=== PATIENT | female | born 1940 | race Caucasian/White ===

== ENCOUNTER 2017-02-04 07:00 | Day surgery (SDC) | payer MEDICARE, OTHER ==
[~2017-02-04 07:00] MED LIST: Lactated Ringers 1,000 ML IV SCH
[2017-02-04] MEDS ORDERED: Propofol 200 MG/20 ML SDV ONE (07:42)
[2017-02-04] MEDS ORDERED: fentaNYL 100 MCG/2 ML SDV ONE (07:42)
[2017-02-04] MEDS ORDERED: Dexamethasone 10 MG/ML SDV ONE (07:59)
[2017-02-04] MEDS ORDERED: Ondansetron 4 MG/2 ML SDV ONE ×2 (07:59→09:15)
[2017-02-04 10:09] VITALS: BP 136/69
--- NOTE | 2017-02-04 11:32 | OR ---
PREOPERATIVE DIAGNOSIS: Dysphagia. POSTOPERATIVE DIAGNOSES: 1. Esophageal stenosis. 2. Hemorrhagic gastritis. PROCEDURE PROPOSED: Upper gastrointestinal panendoscopy. PROCEDURE DONE: 1. Upper gastrointestinal panendoscopy with biopsies. 2. Endoscopic balloon esophageal dilatation. INDICATION: This is a 76-year-old female bothered with dysphagia and what appears to be some esophageal stenosis type problems with some intermittent regurgitation of food. She does take 1 Zantac each evening, and her last gastroscopy was about 3 years ago. She comes in now for repeat exam. TECHNIQUE: The patient was brought to the endoscopy suite, placed in left lateral decubitus position. She was sedated with propofol per RECREATION ESTABLISHMENT MANAGER. The flexible video gastroscope was then passed transorally after placing an intraoral kathleen. The scope was then passed through the esophagus, all the way down into the second and third portion of the duodenum. The duodenum appeared unremarkable. The antrum revealed significant hemorrhagic gastritis with multiple petechial hemorrhage areas. Several biopsies were taken from the antrum to rule out H. pylori. The remainder of the body of the stomach looked quite healthy. The GE junction revealed a small hiatal hernia of about 2 to 3 cm in size, and she did have some stenosis that I felt would benefit with dilatation. Endoscopic balloon dilatation was then performed by bringing in a balloon dilator, 15 to 18 mm in size, and I dilated the esophagus through the stages of 15 mm, 16.5 mm, and 18 mm with some fracturing of the stenosis with some slight bleeding. She seemed to tolerate the procedure well. The balloon and scope were then removed. IMPRESSION: 1. Hemorrhagic gastritis. 2. Esophageal stenosis dilated to 18 mm. PLAN: I will also add Protonix 40 mg q.a.m. to her regimen. She does take Zantac each evening, which I would like her to continue. She should avoid caffeine, alcohol, ibuprofen, and follow up with her PCP, and she was told that she potentially may need future dilatations based on her symptoms. SCM: 02/04/2017 09:43:06 MODL: 02/04/2017 11:24:42 /[id number]
--- NOTE | 2017-02-14 13:17 | LETTER ---
02/11/2017 RE: WERNER GOMEZ : 1940 Dear Werner: The biopsies taken from your stomach did reveal some chronic gastritis, but you did not have the bacteria known as Helicobacter pylori in your stomach. I am hoping that your swallowing has improved with dilatation. If you have any further questions, feel free to call. Respectfully,
== END 2017-02-04 10:40 | disposition home or self-care (01) ==
LOC: VM.SDS 07:00
PROVIDERS: ATTEND Surgery
DX: K29.71 Gastritis, unspecified, with bleeding (principal); K22.2 Esophageal obstruction
CPT/HCPCS: 43239; 43249; J1100; J2405; J2704; J7120; 00810; 88305; C1726; J3010

== ENCOUNTER 2018-12-04 06:28 | Day surgery (SDC) | payer MEDICARE, OTHER ==
[2018-12-04] MEDS ORDERED: Lactated Ringers 1,000 ML IV SCH (07:00)
[2018-12-04] MEDS ORDERED: Sodium Chloride 0.9% 10 ML Syringe FLUSH PRN (07:00)
[2018-12-04] MEDS ORDERED: fentaNYL 100 MCG/2 ML SDV ONE (07:52)
[2018-12-04] MEDS ORDERED: Ondansetron 4 MG/2 ML SDV ONE (07:52)
[2018-12-04] MEDS ORDERED: Propofol 200 MG/20 ML SDV ONE (07:52)
[2018-12-04] MEDS ORDERED: Dexamethasone 10 MG/ML SDV ONE (07:53)
[2018-12-04 09:08] VITALS: BP 124/66
--- NOTE | 2018-12-04 15:33 | OR ---
PREOPERATIVE DIAGNOSES: Family history of colon cancer, change in bowel pattern. POSTOPERATIVE DIAGNOSES: Extensive sigmoid diverticulosis, colonic polyps x4. PROCEDURE PROPOSED: Total flexible colonoscopy. PROCEDURE DONE: Total flexible colonoscopy with polypectomy x4. INDICATION: This is a 78-year-old female who has a family history of a sister with colon cancer and her last examination was 5 years ago. She also has had a change in her bowel pattern recently with increasing constipation and decreased number of stools with some bloating symptoms. TECHNIQUE: The patient was brought to the endoscopy suite, placed in left lateral decubitus position. She was sedated per ART EDUCATOR with propofol. The flexible video colonoscope was then passed transanally and under visualization advanced to the cecum. She was found to have a cecal polyp removed with a couple of bites of the cold biopsy forceps. The remainder of the transverse colon was unremarkable. The descending colon and sigmoid colon revealed rather extensive diverticulosis, particularly in the sigmoid region, and she had several polyps in the low rectosigmoid, 1 at 5 cm, 1 at 10 cm, 1 at 15 cm, again all removed with cold biopsy forceps technique and retrieved with the biopsy forceps and submitted for pathologic examination. She tolerated the procedure well. She had a good bowel preparation and a thorough examination was obtained. She tolerated procedure well. FINAL IMPRESSION: 1. Extensive sigmoid and left colon diverticulosis. 2. Colonic polyps x4. PLAN: The patient will be sent a letter with pathology report. I felt at her age that she probably likely does not need any future examinations, could not detect any reason in her colon for the change in bowel pattern, and should continue to follow up with her PCP for further management of her constipation problem. SCM: 12/04/2018 08:21:45 MODL: 12/04/2018 13:35:24 /[id number]
== END 2018-12-04 10:07 | disposition home or self-care (01) ==
LOC: VM.SDS 06:28
PROVIDERS: ATTEND Surgery
DX: K59.00 Constipation, unspecified (principal); D12.0 Benign neoplasm of cecum; K63.5 Polyp of colon; K57.30 Diverticulosis of large intestine without perforation or abscess without bleeding; I12.9 Hypertensive chronic kidney disease with stage 1 through stage 4 chronic kidney disease, or unspecified chronic kidney disease; N18.3 Chronic kidney disease, stage 3 (moderate); F17.210 Nicotine dependence, cigarettes, uncomplicated; E78.5 Hyperlipidemia, unspecified; K21.9 Gastro-esophageal reflux disease without esophagitis; C82.10 Follicular lymphoma grade II, unspecified site; Z79.82 Long term (current) use of aspirin; Z79.899 Other long term (current) drug therapy; Z80.0 Family history of malignant neoplasm of digestive organs
CPT/HCPCS: 00811; 45380; J1100; J2405; J2704; J3010; J7120

== ENCOUNTER 2018-12-08 06:53 | Day surgery (SDC) | payer MEDICARE, OTHER ==
[2018-12-08] MEDS ORDERED: Propofol 200 MG/20 ML SDV ONE (07:53)
[2018-12-08] MEDS ORDERED: Ondansetron 4 MG/2 ML SDV ONE (08:59)
[2018-12-08 10:34] VITALS: BP 159/66
--- NOTE | 2018-12-08 13:45 | OR ---
PREOPERATIVE DIAGNOSIS: Esophageal stenosis with active gastroesophageal reflux disease. POSTOPERATIVE DIAGNOSIS: Esophageal stenosis with active gastroesophageal reflux disease. PROCEDURE PROPOSED: Endoscopic balloon esophageal dilatation. PROCEDURE DONE: Endoscopic balloon esophageal dilatation. TECHNIQUE: The patient was already sedated. The gastroscope was in the esophagus. I then passed an 18-20 mm dilating balloon and this was placed across the GE junction, approximately 5 cm on each side. The GE junction appeared to be at 37 cm. The balloon was then inflated to 18 mm followed by 19 and ending up at 20 mm. There was some definite fracturing of the stenosis with some minor bleeding. This was irrigated and inspected and appeared to be without significant injury. The balloon and scope were then removed. She tolerated the procedure well. FINAL IMPRESSION: Esophageal stenosis dilated to 20 mm. PLAN: Ashlynlosec as previously described and she potentially may need future dilations based on symptomatology. SCM: 12/08/2018 09:20:12 MODL: 12/08/2018 11:32:33 /[id number]
--- NOTE | 2018-12-08 13:48 | OR ---
PREOPERATIVE DIAGNOSIS: Dysphagia. POSTOPERATIVE DIAGNOSES: Significant antritis with petechial hemorrhage, mild esophageal stenosis with mild gastroesophageal reflux disease. PROCEDURE PROPOSED: Upper gastrointestinal panendoscopy with antral biopsies. PROCEDURE DONE: Upper gastrointestinal panendoscopy with antral biopsies. INDICATION: This is a 78-year-old female with a history of dysphagia. She has previously had her esophagus dilated and comes in now for further examination based on her symptoms. TECHNIQUE: The patient brought to the endoscopy suite, placed in left lateral decubitus position. She was sedated per LANDSCAPE PHOTOGRAPHER with propofol. The flexible video gastroscope was then passed transorally and under visualization advanced well into the duodenum. The duodenum, duodenal bulb were unremarkable. The antrum revealed significant antritis with petechial hemorrhage and a couple of biopsies were taken from the antrum. The body of the stomach otherwise looked quite normal and healthy. The GE junction did reveal a rather very small hiatal hernia that appeared to be insignificant, but she did have some mild GERD and mild esophageal stenosis that I felt would benefit with dilation and the remainder of the esophagus appeared normal. FINAL IMPRESSION: 1. Mild gastroesophageal reflux disease with esophageal stenosis. 2. Significant antritis with petechial hemorrhage. PLAN: The patient will be treated with Prilosec 20 mg daily. She needs to avoid caffeine, alcohol, ibuprofen, and she will also have her esophagus dilated. SCM: 12/08/2018 09:20:12 MODL: 12/08/2018 11:31:22 /[id number]
== END 2018-12-08 10:30 | disposition home or self-care (01) ==
LOC: VM.SDS 06:53
PROVIDERS: ATTEND Surgery
DX: K22.2 Esophageal obstruction (principal); K29.61 Other gastritis with bleeding; K21.9 Gastro-esophageal reflux disease without esophagitis; I12.9 Hypertensive chronic kidney disease with stage 1 through stage 4 chronic kidney disease, or unspecified chronic kidney disease; N18.3 Chronic kidney disease, stage 3 (moderate); J43.9 Emphysema, unspecified; C82.10 Follicular lymphoma grade II, unspecified site; E78.5 Hyperlipidemia, unspecified; F17.210 Nicotine dependence, cigarettes, uncomplicated; Z79.82 Long term (current) use of aspirin; Z79.899 Other long term (current) drug therapy; Z90.13 Acquired absence of bilateral breasts and nipples
CPT/HCPCS: 00731; C1726; J2405; J2704; J7120

== ENCOUNTER 2019-07-21 08:33 | Emergency (ER) | payer MEDICARE, OTHER ==
[2019-07-21 08:48] VITALS: BP 158/86; PULSE 103
--- NOTE | 2019-07-21 09:17 | EDM.PDOC ---
ED HPI GENERAL MEDICAL PROBLEM - General Chief Complaint: Respiratory Problem Stated Complaint: cough Time Seen by Provider: 07/21/19 08:57 Source of Information: Reports: Patient - History of Present Illness INITIAL COMMENTS - FREE TEXT/NARRATIVE: patient comes into the emergency department with complaint of progressive cough. Patient was in the clinic approximately 2 days ago and was prescribed azithromycin and prednisone for bronchial cough. Patient states that she has a gun to feel better however she has a severe cough especially when she tries to lay down. She has not slept more than 1-2 hours each night due the severe cough. She is coming to the emergency department today with request for medication to help with the severe cough patient denies any fever, shortness of breath, chest pain, dizziness, nausea or vomiting. She states that during the day since starting the medication she has not noticed her cough is significant. However at nighttime it is still progressive and is keeping her up. Patient denies any other concerns or complaints she feels overall she is getting better however dribbling with the severe cough at night and her inability to sleep Onset: Gradual Location: Reports: Other Quality: Reports: Other Severity: Severe Improves with: Reports: Other Worsens with: Reports: Movement Context: Reports: Other Associated Symptoms: Reports: No Other Symptoms - Related Data Allergies Allergy/AdvReac Type Severity Reaction Status Date / Time CONTRAST DYE AdvReac Mild Nausea and Uncoded 07/21/19 08:41 Vomiting Home Meds: Home Meds Acetaminophen [Tylenol Extra Strength] 1 tab PO Q4H PRN 06/12/14 [History] Aspirin [Halfprin] 1 tab PO DAILY 06/12/14 [History] Loratadine [Claritin] 10 mg PO DAILY PRN 06/12/14 [History] Potassium Chloride [Klor-Con M20] 1 tab PO DAILY 06/12/14 [History] Cholecalciferol (Vitamin D3) [Vitamin D3] 1,000 units PO DAILY 01/27/17 [History ] Hydrochlorothiazide 12.5 mg PO DAILY 01/27/17 [History] Albuterol Sulfate [Proair Hfa] 2 puff INH Q4H PRN 12/05/18 [History] Magnesium Oxide 250 mg PO DAILY 12/05/18 [History] Omeprazole Magnesium [Prilosec Otc] 20 mg PO DAILY 07/21/19 [History] Past Medical History HEENT History: Reports: Cataract Other HEENT History: DYSPHAGIA Cardiovascular History: Reports: High Cholesterol, Hypertension Respiratory History: Reports: COPD, Other (See Below) Other Respiratory History: EMPHYSEMA Gastrointestinal History: Reports: Diverticulosis, GERD Other Gastrointestinal History: Hiatal hernia 20 years ago Genitourinary History: Reports: Renal Disease Other Genitourinary History: Creatinine was going up and treated for renal disease Neurological History: Reports: None Other Psychiatric History: TOBACCO USE DISORDER Endocrine/Metabolic History: Reports: None Other Hematologic History: HYPOGAMMAGLOBULINEMIA Other Immunologic History: HX of cancer Oncologic (Cancer) History: Reports: Breast, Lymphoma Other Dermatologic History: NIGHT SWEATS - Past Surgical History Head Surgeries/Procedures: Reports: None HEENT Surgical History: Reports: Cataract Surgery, Other (See Below) Other HEENT Surgeries/Procedures: Cataract surgery early Cardiovascular Surgical History: Reports: None Respiratory Surgical History: Reports: None GI Surgical History: Reports: Cholecystectomy, Colonoscopy, EGD Female Surgical History: Reports: Mastectomy, Tubal Ligation Endocrine Surgical History: Reports: None Neurological Surgical History: Reports: None Musculoskeletal Surgical History: Reports: Carpal Tunnel, Shoulder Surgery Other Musculoskeletal Surgeries/Procedures:: EXCISION OF CYST GANGLION. hand sx x8. blocked ulna nerve repair Oncologic Surgical History: Reports: Mastectomy, Other (See Below) Other Oncologic Surgeries/Procedures: Double mastectomy Social & Family History - Tobacco Use Smoking Status *Q: Current Every Day Smoker Years of Tobacco use: 58 Packs/Tins Daily: 1 - Recreational Drug Use Recreational Drug Use: No ED ROS GENERAL - Review of Systems Review Of Systems: ROS reveals no pertinent complaints other than HPI. Constitutional: Denies: Fever, Chills, Malaise, Weakness, Fatigue, Decreased Appetite HEENT: Reports: No Symptoms Respiratory: Reports: Wheezing, Cough Cardiovascular: Reports: No Symptoms Endocrine: Reports: No Symptoms GI/Abdominal: Reports: No Symptoms : Reports: No Symptoms Musculoskeletal: Reports: No Symptoms Skin: Reports: No Symptoms Neurological: Reports: No Symptoms Psychiatric: Reports: No Symptoms Hematologic/Lymphatic: Reports: No Symptoms ED EXAM, GENERAL - Physical Exam Exam: See Below Exam Limited By: No Limitations General Appearance: Alert, WD/WN, No Apparent Distress Throat/Mouth: Normal Inspection, Normal Lips, No Airway Compromise Head: Normocephalic Respiratory/Chest: No Respiratory Distress, No Accessory Muscle Use, Chest Non- Tender, Wheezing Cardiovascular: Normal Peripheral Pulses, Regular Rate, Rhythm Back Exam: Normal Inspection, Full Range of Motion Extremities: Normal Inspection, Normal Range of Motion, Non-Tender Neurological: Alert, Oriented, Normal Gait Psychiatric: Normal Affect, Normal Mood Skin Exam: Warm, Dry, Intact, Normal Color Course - Vital Signs Last Recorded V/S: Last Vital Signs Temp 36.5 C 07/21/19 08:44 Pulse 103 H 07/21/19 08:44 Resp 20 07/21/19 08:44 BP 158/86 H 07/21/19 08:44 Pulse Ox 93 L 07/21/19 08:44 Departure - Departure Time of Disposition: 09:07 Disposition: Home, Self-Care 01 Condition: Good Clinical Impression: Bronchitis - Discharge Information *PRESCRIPTION DRUG MONITORING PROGRAM REVIEWED*: Not Applicable *COPY OF PRESCRIPTION DRUG MONITORING REPORT IN PATIENT RACHAEL: Not Applicable Instructions: Upper Respiratory Infection, Adult, [id number] Additional Instructions: 1. rest 2. take your antibiotics as prescribed 3. Use the Promethazine/codeine sparingly for it can cause Lucid muscle ( increasing your risk for falls), altered thinking, and decrease respiratory effort. Do not drive or operate any vehicle while taking this medication 4. Can take the tessalon pearles 3 times a day for severe cough 5. Follow up with your PCP if not better or return if symptoms worsen 6. Activity and diet as tolerated 7. Call with any questions or concerns. - Assessment/Plan Assessment:: 1. bronchitis 2. severe cough at night Plan: 1. patient is currently on an antibiotic and prednisone through her primary care provider she's been on this medication for 2 days. We'll continue with the current medication regimen for the patient states that she is beginning to feel better. Patient also denies having any fever, nausea, vomiting, or increased shortness of breath 2. patient was provided with a script for promethazine with codeine. Patient was given strict instructions only uses at bedtime or time of resting during the day if need be. She was also to ensure she is not using will driving or completing any complex task due to the lucid side effects the medication can cause. 3.the patient was also given Tessalon Perles to help with the severe coughing episodes is a do arise during the daytime. 4. education was provided regarding activity, diet, [id number] medication use, follow-up care,signs of worsening symptoms, and side effects and risks factors taking the promethazine and codeine. 5. Patient verbalized understanding of all the above and all questions and concerns were addressed prior to discharge
== END 2019-07-21 09:20 | disposition home or self-care (01) ==
LOC: VM.ED 08:33
DX: J40 Bronchitis, not specified as acute or chronic (principal); I10 Essential (primary) hypertension; E78.00 Pure hypercholesterolemia, unspecified; J44.9 Chronic obstructive pulmonary disease, unspecified; F17.210 Nicotine dependence, cigarettes, uncomplicated; Z90.49 Acquired absence of other specified parts of digestive tract; Z79.899 Other long term (current) drug therapy; Z79.51 Long term (current) use of inhaled steroids; Z98.51 Tubal ligation status
CPT/HCPCS: 99283; 99283-GF

== ENCOUNTER 2021-08-08 23:35 | Inpatient (IN) | payer MEDICARE, OTHER ==
[2021-08-08] MEDS ORDERED: Iopamidol 612 MG/ML 100 ML Bottle IVPUSH ONE (23:43)
[2021-08-08] MEDS: Iopamidol 755 Mg/ML 100 ML Bottle IVPUSH ONE (23:45)
[2021-08-08] MEDS ORDERED: Ondansetron 4 MG/2 ML SDV IV ONE (23:48)
[2021-08-08] MEDS ORDERED: Morphine 2 MG/ML SYRINGE IVPUSH ONE (23:48)
[2021-08-09 00:11] LABS: CHLORIDE,CL 102 mmol/L (98-107); SODIUM,NA 141 mmol/L (136-145)
--- NOTE | 2021-08-09 00:28 | EDM.PDOC ---
ED HPI GENERAL MEDICAL PROBLEM - General Chief Complaint: Abdominal Pain Stated Complaint: severe abdominal pain Time Seen by Provider: 08/08/21 23:35 Source of Information: Reports: Patient, Family, RN, RN Notes Reviewed History Limitations: Reports: Other (severe pain) - History of Present Illness INITIAL COMMENTS - FREE TEXT/NARRATIVE: Patient is an 80-year-old female who presents to ER with her daughter with complaint of severe abdominal pain. Daughter states the pain began earlier this evening. Patient states she has had diarrhea for approximately 3 weeks. Denies black or bloody stools. Admits to nausea and "retching", no vomiting beginning this evening. Patient denies fever chills, chest pains or shortness of breath. Patient states history of breast cancer, osteoporosis, arthritis, hyperlipidemia, GERD, history of AAA that is being monitored, as well as history of COPD. Daughter states appetite has been okay, always has a poor appetite and nothing has changed. Pt rates pain 08/02. Onset: Today, Sudden - Related Data Allergies Allergy/AdvReac Type Severity Reaction Status Date / Time CONTRAST DYE AdvReac Mild Nausea and Uncoded 07/07/21 11:12 Vomiting 60 yrs ago Home Meds: Home Meds Acetaminophen [Tylenol Extra Strength] 1 tab PO Q4H PRN 06/12/14 [History] Aspirin [Halfprin] 1 tab PO DAILY 06/12/14 [History] Loratadine [Claritin] 10 mg PO DAILY PRN 06/12/14 [History] Potassium Chloride [Klor-Con M20] 1 tab PO DAILY 06/12/14 [History] Cholecalciferol (Vitamin D3) [Vitamin D3] 1,000 units PO DAILY 01/27/17 [History] Hydrochlorothiazide 12.5 mg PO DAILY 01/27/17 [History] Albuterol Sulfate [Proair Hfa] 2 puff INH Q4H PRN 12/05/18 [History] Magnesium Oxide [Magnesium] 250 mg PO DAILY 12/05/18 [History] Omeprazole Magnesium [Prilosec Otc] 20 mg PO DAILY 07/21/19 [History] Clopidogrel [Plavix] 75 mg PO DAILY 08/09/21 [History] Rosuvastatin [Crestor] 10 mg PO DAILY 08/09/21 [History] Triamcinolone Acetonide [Triamcinolone Acetonide 0.1% Crm] 1 applic TOP BID PRN 08/09/21 [History] Turmeric/Turmeric Ext/Pepr Ext [Turmeric Complex 500 mg Cap] 2 tab PO DAILY 08/09/21 [History] Past Medical History HEENT History: Reports: Cataract Other HEENT History: DYSPHAGIA Cardiovascular History: Reports: High Cholesterol, Hypertension Respiratory History: Reports: COPD, Other (See Below) Other Respiratory History: EMPHYSEMA Gastrointestinal History: Reports: Diverticulosis, GERD Other Gastrointestinal History: Hiatal hernia 20 years ago Genitourinary History: Reports: Renal Disease Other Genitourinary History: Creatinine was going up and treated for renal disease Neurological History: Reports: None Other Psychiatric History: TOBACCO USE DISORDER Endocrine/Metabolic History: Reports: None Other Hematologic History: HYPOGAMMAGLOBULINEMIA Other Immunologic History: HX of cancer Oncologic (Cancer) History: Reports: Breast, Lymphoma Other Dermatologic History: NIGHT SWEATS - Past Surgical History Head Surgeries/Procedures: Reports: None HEENT Surgical History: Reports: Cataract Surgery, Other (See Below) Other HEENT Surgeries/Procedures: Cataract surgery early Cardiovascular Surgical History: Reports: None Respiratory Surgical History: Reports: None GI Surgical History: Reports: Cholecystectomy, Colonoscopy, EGD Female Surgical History: Reports: Mastectomy, Tubal Ligation Endocrine Surgical History: Reports: None Neurological Surgical History: Reports: None Musculoskeletal Surgical History: Reports: Carpal Tunnel, Shoulder Surgery Other Musculoskeletal Surgeries/Procedures:: EXCISION OF CYST GANGLION. hand sx x8. blocked ulna nerve repair Oncologic Surgical History: Reports: Mastectomy, Other (See Below) Other Oncologic Surgeries/Procedures: Double mastectomy ED ROS GENERAL - Review of Systems Review Of Systems: Comprehensive ROS is negative, except as noted in HPI. ED EXAM, GI/ABD - Physical Exam Exam: See Below Exam Limited By: No Limitations General Appearance: Alert, WD/WN, Moderate Distress Eyes: Bilateral: Normal Appearance, EOMI Ears: Normal External Exam, Hearing Grossly Normal Nose: Normal Inspection Throat/Mouth: Normal Inspection, Normal Voice, No Airway Compromise Head: Atraumatic, Normocephalic Neck: Normal Inspection, Supple, Non-Tender, Full Range of Motion Respiratory/Chest: No Accessory Muscle Use, Chest Non-Tender, Crackles (bilateral) Cardiovascular: Normal Peripheral Pulses, Regular Rate, Rhythm, No Edema, No Gallop, No JVD, No Murmur, No Rub GI/Abdominal Exam: Normal Bowel Sounds, Soft, Tender (LLQ) (Female) Exam: Deferred Rectal (Female) Exam: Deferred Back Exam: Normal Inspection, Full Range of Motion, NT Extremities: Normal Inspection, Normal Range of Motion, Non-Tender, Normal Capillary Refill, No Pedal Edema Neurological: Alert, Oriented, CN II-XII Intact, Normal Cognition, Normal Gait, Normal Reflexes, No Motor/Sensory Deficits Psychiatric: Normal Affect, Normal Mood Skin Exam: Warm, Dry, Intact, Normal Color, No Rash Lymphatic: No Adenopathy Course - Vital Signs Last Recorded V/S: Last Vital Signs Temp 98.3 F 08/10/21 02:00 Pulse 102 H 08/10/21 02:00 Resp 27 H 08/10/21 02:00 BP 120/71 08/10/21 02:00 Pulse Ox 95 08/10/21 02:00 - Orders/Labs/Meds Orders: Active Orders 24 hr Category Date Time Status Admission Diagnosis [ADT] Stat ADT 08/09/21 04:17 Ordered Nothing Per Oral Diet [DIET] Diet 08/09/21 Breakfast Ordered Dicyclomine [Bentyl] Med 08/09/21 11:34 Active 10 mg PO QIDACANDBED PRN Morphine Med 08/09/21 11:34 Active 1 mg IVPUSH Q2H PRN Ondansetron [Zofran] Med 08/09/21 11:35 Active 4 mg IVPUSH Q6H PRN Sodium Chloride 0.9% [Normal Saline] 1,000 ml Med 08/09/21 09:00 Active IV ASDIRECTED Code Status [Resuscitation Status] Stat Resus Stat 08/09/21 04:19 Ordered Medication Orders Dicyclomine HCl (Dicyclomine 10 Mg Cap) 10 mg PO QIDACANDBED PRN PRN Reason: Pain Last Admin: 08/09/21 12:02 Dose: 10 mg Documented by: [email or web address] Fentanyl (Fentanyl 50 Mcg/Ml Sdv) 12.5 mcg IVPUSH Q2H PRN PRN Reason: Abdominal Pain Last Admin: 08/10/21 02:10 Dose: 12.5 mcg Documented by: Admin: 08/09/21 20:02 Dose: 12.5 mcg Documented by: Admin: 08/09/21 18:15 Dose: 12.5 mcg Documented by: Admin: 08/09/21 13:12 Dose: 12.5 mcg Documented by: ASHLYN Sodium Chloride (Normal Saline) 1,000 mls @ 125 mls/hr IV ASDIRECTED [facility] Last Admin: 08/10/21 03:44 Dose: 125 mls/hr Documented by: Infusion: 08/10/21 01:29 Dose: 125 mls/hr Documented by: Admin: 08/09/21 17:29 Dose: 125 mls/hr Documented by: Infusion: 08/09/21 17:13 Dose: 125 mls/hr Documented by: Admin: 08/09/21 09:13 Dose: 125 mls/hr Documented by: ASHLYN Ciprofloxacin/Dextrose 400 mg/ (Premix) 200 mls @ 200 mls/hr IV Q12H [facility] Last Admin: 08/09/21 21:07 Dose: 200 mls/hr Documented by: SAMIRA Metronidazole 500 mg/ Premix 100 mls @ 100 mls/hr IV Q8H [facility] Last Admin: 08/10/21 03:44 Dose: 100 mls/hr Documented by: Infusion: 08/09/21 22:14 Dose: 100 mls/hr Documented by: Admin: 08/09/21 21:14 Dose: 100 mls/hr Documented by: SAMIRA Morphine Sulfate (Morphine 2 Mg/Ml Syringe) 1 mg IVPUSH Q2H PRN PRN Reason: Pain Ondansetron HCl (Ondansetron 4 Mg/2 Ml Sdv) 4 mg IVPUSH Q6H PRN PRN Reason: Nausea Last Admin: 08/09/21 20:02 Dose: 4 mg Documented by: Admin: 08/09/21 12:02 Dose: 4 mg Documented by: ASHLYN Labs: Laboratory Tests 08/08/21 08/08/21 08/08/21 Range/Units 23:30 23:30 23:30 WBC 8.2 (4.0-10.0) x10^3/uL RBC 5.80 H (4.00-5.50) x10^6/uL Hgb 13.0 (12.0-16.0) g/dL Hct 40.2 (33.0-47.0) % MCV 69.3 L (78.0-93.0) fL MCH 22.4 L (26.0-32.0) pg MCHC 32.3 (32.0-36.0) g/dL RDW Coeff of Ruddy 18.3 H (10.0-15.0) % Plt Count 251 (130-400) x10^3/uL Immature Gran % (Auto) 0.40 (0.00-0.43) % Neut % (Auto) 94.6 H (50.0-80.0) % Lymph % (Auto) 3.7 L (25.0-50.0) % Glasscock % (Auto) 1.0 L (2.0-11.0) % Eos % (Auto) 0.2 (0.0-4.0) % Baso % (Auto) 0.1 L (0.2-1.2) % Neut # (Auto) 7.8 H (1.8-7.7) x10^3/uL Lymph # (Auto) 0.3 L (1.0-4.8) x10^3/uL Glasscock # (Auto) 0.1 (0.0-0.8) x10^3/uL Eos # (Auto) 0.0 (0.0-0.5) x10^3/uL Baso # (Auto) 0.0 (0.0-0.2) x10^3/uL Immature Gran # (Auto) 0.03 (0.00-0.07) x10^3/uL Add Manual Diff Neutrophils % (Manual) (50-80) % Band Neutrophils % (0-6) % Lymphocytes % (Manual) (25-50) % Monocytes % (Manual) (2-11) % Absolute Neutrophils (1.8-7.7) x10^3/uL Lymphocytes # (Manual) (1.0-4.8) x10^3/uL Monocytes # (Manual) (0.0-0.8) x10^3/uL Platelet Estimate Giant Platelets PT 10.2 (9.9-12.5) SEC INR 0.9 L (2.0-3.5) Sodium 141 (136-145) mmol/L Potassium 1.8 L* (3.5-5.1) mmol/L Chloride 102 (98-107) mmol/L Carbon Dioxide 23 (21-32) mmol/L Anion Gap 17.8 H (5-15) mmol/L BUN 39 H D (7-18) mg/dL Creatinine 2.1 H (0.55-1.02) mg/dL Est Cr Clr Drug Dosing TNP Estimated GFR (MDRD) 23 Glucose 143 H (70-99) mg/dL Lactic Acid (0.4-2.0) mmol/L Calcium 8.7 (8.5-10.1) mg/dL Corrected Calcium 9.1 (8.5-10.1) mg/dL Magnesium (1.8-2.4) mg/dL Total Bilirubin 0.4 (0.2-1.0) mg/dL AST 18 (15-37) U/L ALT 17 (14-59) U/L Alkaline Phosphatase 96 (46-116) U/L Troponin I High Sens 15 (<=51) ng/L C-Reactive Protein 0.8 (<=0.9) mg/dL NT-Pro-B Natriuret Pep 681 H (<=450) pg/mL Total Protein 6.1 L (6.4-8.2) g/dL Albumin 3.5 (3.4-5.0) g/dL Globulin 2.6 Albumin/Globulin Ratio 1.35 SARS CoV-2 RNA Rapid LAM (NEGATIVE) 08/08/21 08/09/21 08/09/21 Range/Units 23:30 02:40 02:42 WBC (4.0-10.0) x10^3/uL RBC (4.00-5.50) x10^6/uL Hgb (12.0-16.0) g/dL Hct (33.0-47.0) % MCV (78.0-93.0) fL MCH (26.0-32.0) pg MCHC (32.0-36.0) g/dL RDW Coeff of Ruddy (10.0-15.0) % Plt Count (130-400) x10^3/uL Immature Gran % (Auto) (0.00-0.43) % Neut % (Auto) (50.0-80.0) % Lymph % (Auto) (25.0-50.0) % Glasscock % (Auto) (2.0-11.0) % Eos % (Auto) (0.0-4.0) % Baso % (Auto) (0.2-1.2) % Neut # (Auto) (1.8-7.7) x10^3/uL Lymph # (Auto) (1.0-4.8) x10^3/uL Glasscock # (Auto) (0.0-0.8) x10^3/uL Eos # (Auto) (0.0-0.5) x10^3/uL Baso # (Auto) (0.0-0.2) x10^3/uL Immature Gran # (Auto) (0.00-0.07) x10^3/uL Add Manual Diff Neutrophils % (Manual) (50-80) % Band Neutrophils % (0-6) % Lymphocytes % (Manual) (25-50) % Monocytes % (Manual) (2-11) % Absolute Neutrophils (1.8-7.7) x10^3/uL Lymphocytes # (Manual) (1.0-4.8) x10^3/uL Monocytes # (Manual) (0.0-0.8) x10^3/uL Platelet Estimate Giant Platelets PT (9.9-12.5) SEC INR (2.0-3.5) Sodium (136-145) mmol/L Potassium (3.5-5.1) mmol/L Chloride (98-107) mmol/L Carbon Dioxide (21-32) mmol/L Anion Gap (5-15) mmol/L BUN (7-18) mg/dL Creatinine (0.55-1.02) mg/dL Est Cr Clr Drug Dosing Estimated GFR (MDRD) Glucose (70-99) mg/dL Lactic Acid 3.1 H* 2.2 H* (0.4-2.0) mmol/L Calcium (8.5-10.1) mg/dL Corrected Calcium (8.5-10.1) mg/dL Magnesium (1.8-2.4) mg/dL Total Bilirubin (0.2-1.0) mg/dL AST (15-37) U/L ALT (14-59) U/L Alkaline Phosphatase (46-116) U/L Troponin I High Sens (<=51) ng/L C-Reactive Protein (<=0.9) mg/dL NT-Pro-B Natriuret Pep (<=450) pg/mL Total Protein (6.4-8.2) g/dL Albumin (3.4-5.0) g/dL Globulin Albumin/Globulin Ratio SARS CoV-2 RNA Rapid LAM Negative (NEGATIVE) 08/09/21 08/09/21 Range/Units 07:45 07:45 WBC 11.4 H (4.0-10.0) x10^3/uL RBC 5.77 H (4.00-5.50) x10^6/uL Hgb 13.0 (12.0-16.0) g/dL Hct 41.6 (33.0-47.0) % MCV 72.1 L (78.0-93.0) fL MCH 22.5 L (26.0-32.0) pg MCHC 31.3 L (32.0-36.0) g/dL RDW Coeff of Ruddy 19.0 H (10.0-15.0) % Plt Count 254 (130-400) x10^3/uL Immature Gran % (Auto) (0.00-0.43) % Neut % (Auto) (50.0-80.0) % Lymph % (Auto) (25.0-50.0) % Glasscock % (Auto) (2.0-11.0) % Eos % (Auto) (0.0-4.0) % Baso % (Auto) (0.2-1.2) % Neut # (Auto) (1.8-7.7) x10^3/uL Lymph # (Auto) (1.0-4.8) x10^3/uL Glasscock # (Auto) (0.0-0.8) x10^3/uL Eos # (Auto) (0.0-0.5) x10^3/uL Baso # (Auto) (0.0-0.2) x10^3/uL Immature Gran # (Auto) (0.00-0.07) x10^3/uL Add Manual Diff Yes Neutrophils % (Manual) 54 (50-80) % Band Neutrophils % 37 H (0-6) % Lymphocytes % (Manual) 3 L (25-50) % Monocytes % (Manual) 6 (2-11) % Absolute Neutrophils 10.4 H (1.8-7.7) x10^3/uL Lymphocytes # (Manual) 0.3 L (1.0-4.8) x10^3/uL Monocytes # (Manual) 0.7 (0.0-0.8) x10^3/uL Platelet Estimate Adequate Giant Platelets Few H PT (9.9-12.5) SEC INR (2.0-3.5) Sodium 142 (136-145) mmol/L Potassium 2.1 L* (3.5-5.1) mmol/L Chloride 103 (98-107) mmol/L Carbon Dioxide 24 (21-32) mmol/L Anion Gap 17.1 H (5-15) mmol/L BUN 40 H (7-18) mg/dL Creatinine 2.5 H (0.55-1.02) mg/dL Est Cr Clr Drug Dosing 13.96 Estimated GFR (MDRD) 18 Glucose 158 H (70-99) mg/dL Lactic Acid (0.4-2.0) mmol/L Calcium 8.0 L (8.5-10.1) mg/dL Corrected Calcium (8.5-10.1) mg/dL Magnesium 2.0 (1.8-2.4) mg/dL Total Bilirubin (0.2-1.0) mg/dL AST (15-37) U/L ALT (14-59) U/L Alkaline Phosphatase (46-116) U/L Troponin I High Sens (<=51) ng/L C-Reactive Protein (<=0.9) mg/dL NT-Pro-B Natriuret Pep (<=450) pg/mL Total Protein (6.4-8.2) g/dL Albumin (3.4-5.0) g/dL Globulin Albumin/Globulin Ratio SARS CoV-2 RNA Rapid LAM (NEGATIVE) Meds: Medications Generic Name Dose Route Start Last Admin Trade Name Freq PRN Reason Stop Dose Admin Dicyclomine HCl 10 mg 08/09/21 11:34 08/09/21 12:02 Dicyclomine 10 Mg Cap PO 10 mg QIDACANDBED PRN Administration Pain Fentanyl 12.5 mcg 08/09/21 12:54 08/10/21 02:10 Fentanyl 50 Mcg/Ml Sdv IVPUSH 12.5 mcg Q2H PRN Administration Abdominal Pain Sodium Chloride 1,000 mls @ 125 mls/hr 08/09/21 09:00 08/10/21 03:44 Normal Saline IV 125 mls/hr ASDIRECTED [facility] Administration Ciprofloxacin/Dextrose 400 mg/ 200 mls @ 200 mls/hr 08/09/21 20:30 08/09/21 21:07 Premix IV 200 mls/hr Q12H [facility] Administration Metronidazole 500 mg/ Premix 100 mls @ 100 mls/hr 08/09/21 20:30 08/10/21 03:44 IV 100 mls/hr Q8H [facility] Administration Morphine Sulfate 1 mg 08/09/21 11:34 Morphine 2 Mg/Ml Syringe IVPUSH Q2H PRN Pain Ondansetron HCl 4 mg 08/09/21 11:35 08/09/21 20:02 Ondansetron 4 Mg/2 Ml Sdv IVPUSH 4 mg Q6H PRN Administration Nausea Discontinued Medications Generic Name Dose Route Start Last Admin Trade Name Freq PRN Reason Stop Dose Admin Dicyclomine HCl 20 mg 08/09/21 01:58 08/09/21 03:02 Dicyclomine 20 Mg/2 Ml Sdv IM 08/09/21 01:59 20 mg ONETIME ONE Administration Fentanyl 50 mcg 08/09/21 01:48 08/09/21 02:00 Fentanyl 100 Mcg/2 Ml Sdv IVPUSH 08/09/21 01:49 50 mcg ONETIME ONE Administration Hydromorphone HCl 1 mg 08/09/21 00:36 08/09/21 00:41 Hydromorphone 1 Mg/Ml Syringe IVPUSH 08/09/21 00:37 1 mg ONETIME ONE Administration Potassium Chloride/Sodium Chloride 1,000 mls @ 125 mls/hr 08/09/21 00:45 Normal Saline With 40 Meq Kcl IV ASDIRECTED [facility] Ciprofloxacin/Dextrose 400 mg/ 200 mls @ 200 mls/hr 08/09/21 01:19 08/09/21 03:01 Premix IV 08/09/21 02:18 200 mls/hr STAT ONE Administration Metronidazole 500 mg/ Premix 100 mls @ 100 mls/hr 08/09/21 01:20 08/09/21 04:16 IV 08/09/21 02:19 100 mls/hr ONETIME ONE Administration Potassium Chloride/Sodium Chloride 1,000 mls @ 200 mls/hr 08/09/21 02:00 1 05:58 Normal Saline With 40 Meq Kcl IV 100 mls/hr ASDIRECTED [facility] Infusion Potassium Chloride 10 meq/ 50 mls @ 50 mls/hr 08/09/21 09:00 08/09/21 17:20 Premix IV 08/09/21 16:59 50 mls/hr Q1H [facility] Administration Iopamidol 100 ml 08/08/21 23:43 08/09/21 12:58 Iopamidol 612 Mg/Ml 100 Ml Bottle IVPUSH 08/08/21 23:44 Not Given ONETIME ONE Iopamidol 100 ml 08/09/21 03:24 08/09/21 12:55 Iopamidol 755 Mg/Ml 100 Ml Bottle IVPUSH 08/09/21 03:25 Not Given ONETIME ONE Methylprednisolone Sodium Succinate 125 mg 08/09/21 03:41 08/09/21 04:17 Methylprednisolone Sodium Succinate 125 Mg/2 Ml Sdv IVPUSH 08/09/21 03:42 125 mg ONETIME ONE Administration Metoclopramide HCl 10 mg 08/09/21 00:36 08/09/21 00:36 Metoclopramide 10 Mg/2 Ml Sdv IVPUSH 08/09/21 00:37 10 mg ONETIME ONE Administration Morphine Sulfate 4 mg 08/08/21 23:48 08/08/21 23:35 Morphine 2 Mg/Ml Syringe IVPUSH 08/08/21 23:49 4 mg ONETIME ONE Administration Ondansetron HCl 4 mg 08/08/21 23:48 08/08/21 23:37 Ondansetron 4 Mg/2 Ml Sdv IV 08/08/21 23:49 4 mg ONETIME ONE Administration - Radiology Interpretation Free Text/Narrative:: CT of abdomen/Pelvis: AAA Colitis See radiologist report Departure - Departure Time of Disposition: 04:31 Disposition: Admitted As Inpatient 65 Condition: Fair Clinical Impression: Gastroenteritis, Colitis Abdominal pain Qualifiers: Abdominal location: left lower quadrant Qualified Code(s): R10.32 - Left lower quadrant pain - Discharge Information *PRESCRIPTION DRUG MONITORING PROGRAM REVIEWED*: No *COPY OF PRESCRIPTION DRUG MONITORING REPORT IN PATIENT RACHAEL: No - My Orders Last 24 Hours: My Active Orders 08/09/21 04:17 Admission Diagnosis [ADT] Stat 08/09/21 04:19 Code Status [Resuscitation Status] Stat 08/09/21 Breakfast Nothing Per Oral Diet [DIET] - Assessment/Plan Last 24 Hours: My Active Orders 08/09/21 04:17 Admission Diagnosis [ADT] Stat 08/09/21 04:19 Code Status [Resuscitation Status] Stat 08/09/21 Breakfast Nothing Per Oral Diet [DIET]
[2021-08-09 00:30] LABS: ANION GAP 17.8 mmol/L (5-15)
[2021-08-09] MEDS ORDERED: Metoclopramide 10 MG/2 ML SDV IVPUSH ONE (00:36)
[2021-08-09] MEDS ORDERED: HYDROmorphone 1 MG/ML Syringe IVPUSH ONE (00:36)
[2021-08-09] MEDS ORDERED: Sodium Chloride 0.9% with KCl 1,000 ML IV SCH ×2 (00:45→02:00)
[2021-08-09] MEDS ORDERED: Ciprofloxacin in D5W 400 MG in Premix Bag 1 BAG IV ONE ×2 (01:19)
[2021-08-09] MEDS ORDERED: metroNIDAZOLE/Normal Saline 500 MG in Premix Bag 1 BAG IV ONE (01:20)
[2021-08-09] MEDS ORDERED: fentaNYL 100 MCG/2 ML SDV IVPUSH ONE (01:48)
[2021-08-09] MEDS ORDERED: Dicyclomine 20 MG/2 ML SDV IM ONE (01:58)
[2021-08-09] MEDS ORDERED: methylPREDNISolone Sodium Succinate 125 MG/2 ML SDV IVPUSH ONE (03:41)
[2021-08-09 08:44] LABS: ANION GAP 17.1 mmol/L (5-15)
--- NOTE | 2021-08-09 09:10 | PCM.PN ---
- General Info Date of Service: 08/09/21 Admission Dx/Problem (Free Text): 1)Abdominal Pain probable Colitis 2)Hypokalemia Subjective Update: Patient is seen on rounds. Still having some abdominal pain. Taking ice chips, but still a bit nauseated. No fevers. - Review of Systems General: Reports: No Symptoms HEENT: Reports: No Symptoms Pulmonary: Reports: No Symptoms Cardiovascular: Reports: No Symptoms Gastrointestinal: Reports: Abdominal Pain, Nausea Genitourinary: Reports: No Symptoms Musculoskeletal: Reports: No Symptoms, Back Pain Neurological: Reports: No Symptoms Psychiatric: Reports: No Symptoms - Patient Data Vitals - Most Recent: Last Vital Signs Temp 36.7 C 08/09/21 06:00 Pulse 93 08/09/21 06:00 Resp 16 08/09/21 06:00 BP 117/54 L 08/09/21 06:00 Pulse Ox 90 L 08/09/21 06:00 Weight - Most Recent: 57.153 kg Lab Results Last 24 Hours: Laboratory Results - last 24 hr 08/08/21 08/08/21 08/08/21 Range/Units 23:30 23:30 23:30 WBC 8.2 (4.0-10.0) x10^3/uL RBC 5.80 H (4.00-5.50) x10^6/uL Hgb 13.0 (12.0-16.0) g/dL Hct 40.2 (33.0-47.0) % MCV 69.3 L (78.0-93.0) fL MCH 22.4 L (26.0-32.0) pg MCHC 32.3 (32.0-36.0) g/dL RDW Coeff of Ruddy 18.3 H (10.0-15.0) % Plt Count 251 (130-400) x10^3/uL Immature Gran % (Auto) 0.40 (0.00-0.43) % Neut % (Auto) 94.6 H (50.0-80.0) % Lymph % (Auto) 3.7 L (25.0-50.0) % [place] % (Auto) 1.0 L (2.0-11.0) % Eos % (Auto) 0.2 (0.0-4.0) % Baso % (Auto) 0.1 L (0.2-1.2) % Neut # (Auto) 7.8 H (1.8-7.7) x10^3/uL Lymph # (Auto) 0.3 L (1.0-4.8) x10^3/uL [place] # (Auto) 0.1 (0.0-0.8) x10^3/uL Eos # (Auto) 0.0 (0.0-0.5) x10^3/uL Baso # (Auto) 0.0 (0.0-0.2) x10^3/uL Immature Gran # (Auto) 0.03 (0.00-0.07) x10^3/uL Add Manual Diff Neutrophils % (Manual) (50-80) % Band Neutrophils % (0-6) % Lymphocytes % (Manual) (25-50) % Monocytes % (Manual) (2-11) % Absolute Neutrophils (1.8-7.7) x10^3/uL Lymphocytes # (Manual) (1.0-4.8) x10^3/uL Monocytes # (Manual) (0.0-0.8) x10^3/uL Platelet Estimate Giant Platelets PT 10.2 (9.9-12.5) SEC INR 0.9 L (2.0-3.5) Sodium 141 (136-145) mmol/L Potassium 1.8 L* (3.5-5.1) mmol/L Chloride 102 (98-107) mmol/L Carbon Dioxide 23 (21-32) mmol/L Anion Gap 17.8 H (5-15) mmol/L BUN 39 H D (7-18) mg/dL Creatinine 2.1 H (0.55-1.02) mg/dL Est Cr Clr Drug Dosing TNP Estimated GFR (MDRD) 23 Glucose 143 H (70-99) mg/dL Lactic Acid (0.4-2.0) mmol/L Calcium 8.7 (8.5-10.1) mg/dL Corrected Calcium 9.1 (8.5-10.1) mg/dL Magnesium (1.8-2.4) mg/dL Total Bilirubin 0.4 (0.2-1.0) mg/dL AST 18 (15-37) U/L ALT 17 (14-59) U/L Alkaline Phosphatase 96 (46-116) U/L Troponin I High Sens 15 (<=51) ng/L C-Reactive Protein 0.8 (<=0.9) mg/dL NT-Pro-B Natriuret Pep 681 H (<=450) pg/mL Total Protein 6.1 L (6.4-8.2) g/dL Albumin 3.5 (3.4-5.0) g/dL Globulin 2.6 Albumin/Globulin Ratio 1.35 SARS CoV-2 RNA Rapid LAM (NEGATIVE) 08/08/21 08/09/21 08/09/21 Range/Units 23:30 02:40 02:42 WBC (4.0-10.0) x10^3/uL RBC (4.00-5.50) x10^6/uL Hgb (12.0-16.0) g/dL Hct (33.0-47.0) % MCV (78.0-93.0) fL MCH (26.0-32.0) pg MCHC (32.0-36.0) g/dL RDW Coeff of Ruddy (10.0-15.0) % Plt Count (130-400) x10^3/uL Immature Gran % (Auto) (0.00-0.43) % Neut % (Auto) (50.0-80.0) % Lymph % (Auto) (25.0-50.0) % [place] % (Auto) (2.0-11.0) % Eos % (Auto) (0.0-4.0) % Baso % (Auto) (0.2-1.2) % Neut # (Auto) (1.8-7.7) x10^3/uL Lymph # (Auto) (1.0-4.8) x10^3/uL [place] # (Auto) (0.0-0.8) x10^3/uL Eos # (Auto) (0.0-0.5) x10^3/uL Baso # (Auto) (0.0-0.2) x10^3/uL Immature Gran # (Auto) (0.00-0.07) x10^3/uL Add Manual Diff Neutrophils % (Manual) (50-80) % Band Neutrophils % (0-6) % Lymphocytes % (Manual) (25-50) % Monocytes % (Manual) (2-11) % Absolute Neutrophils (1.8-7.7) x10^3/uL Lymphocytes # (Manual) (1.0-4.8) x10^3/uL Monocytes # (Manual) (0.0-0.8) x10^3/uL Platelet Estimate Giant Platelets PT (9.9-12.5) SEC INR (2.0-3.5) Sodium (136-145) mmol/L Potassium (3.5-5.1) mmol/L Chloride (98-107) mmol/L Carbon Dioxide (21-32) mmol/L Anion Gap (5-15) mmol/L BUN (7-18) mg/dL Creatinine (0.55-1.02) mg/dL Est Cr Clr Drug Dosing Estimated GFR (MDRD) Glucose (70-99) mg/dL Lactic Acid 3.1 H* 2.2 H* (0.4-2.0) mmol/L Calcium (8.5-10.1) mg/dL Corrected Calcium (8.5-10.1) mg/dL Magnesium (1.8-2.4) mg/dL Total Bilirubin (0.2-1.0) mg/dL AST (15-37) U/L ALT (14-59) U/L Alkaline Phosphatase (46-116) U/L Troponin I High Sens (<=51) ng/L C-Reactive Protein (<=0.9) mg/dL NT-Pro-B Natriuret Pep (<=450) pg/mL Total Protein (6.4-8.2) g/dL Albumin (3.4-5.0) g/dL Globulin Albumin/Globulin Ratio SARS CoV-2 RNA Rapid LAM Negative (NEGATIVE) 08/09/21 08/09/21 Range/Units 07:45 07:45 WBC 11.4 H (4.0-10.0) x10^3/uL RBC 5.77 H (4.00-5.50) x10^6/uL Hgb 13.0 (12.0-16.0) g/dL Hct 41.6 (33.0-47.0) % MCV 72.1 L (78.0-93.0) fL MCH 22.5 L (26.0-32.0) pg MCHC 31.3 L (32.0-36.0) g/dL RDW Coeff of Ruddy 19.0 H (10.0-15.0) % Plt Count 254 (130-400) x10^3/uL Immature Gran % (Auto) (0.00-0.43) % Neut % (Auto) (50.0-80.0) % Lymph % (Auto) (25.0-50.0) % [place] % (Auto) (2.0-11.0) % Eos % (Auto) (0.0-4.0) % Baso % (Auto) (0.2-1.2) % Neut # (Auto) (1.8-7.7) x10^3/uL Lymph # (Auto) (1.0-4.8) x10^3/uL [place] # (Auto) (0.0-0.8) x10^3/uL Eos # (Auto) (0.0-0.5) x10^3/uL Baso # (Auto) (0.0-0.2) x10^3/uL Immature Gran # (Auto) (0.00-0.07) x10^3/uL Add Manual Diff Yes Neutrophils % (Manual) 54 (50-80) % Band Neutrophils % 37 H (0-6) % Lymphocytes % (Manual) 3 L (25-50) % Monocytes % (Manual) 6 (2-11) % Absolute Neutrophils 10.4 H (1.8-7.7) x10^3/uL Lymphocytes # (Manual) 0.3 L (1.0-4.8) x10^3/uL Monocytes # (Manual) 0.7 (0.0-0.8) x10^3/uL Platelet Estimate Adequate Giant Platelets Few H PT (9.9-12.5) SEC INR (2.0-3.5) Sodium 142 (136-145) mmol/L Potassium 2.1 L* (3.5-5.1) mmol/L Chloride 103 (98-107) mmol/L Carbon Dioxide 24 (21-32) mmol/L Anion Gap 17.1 H (5-15) mmol/L BUN 40 H (7-18) mg/dL Creatinine 2.5 H (0.55-1.02) mg/dL Est Cr Clr Drug Dosing 13.96 Estimated GFR (MDRD) 18 Glucose 158 H (70-99) mg/dL Lactic Acid (0.4-2.0) mmol/L Calcium 8.0 L (8.5-10.1) mg/dL Corrected Calcium (8.5-10.1) mg/dL Magnesium 2.0 (1.8-2.4) mg/dL Total Bilirubin (0.2-1.0) mg/dL AST (15-37) U/L ALT (14-59) U/L Alkaline Phosphatase (46-116) U/L Troponin I High Sens (<=51) ng/L C-Reactive Protein (<=0.9) mg/dL NT-Pro-B Natriuret Pep (<=450) pg/mL Total Protein (6.4-8.2) g/dL Albumin (3.4-5.0) g/dL Globulin Albumin/Globulin Ratio SARS CoV-2 RNA Rapid LAM (NEGATIVE) [place] Results Last 24 Hours: Microbiology 08/09/21 00:26 Anaerobic Blood Culture - Final Blood - Venous - Lab Draw Med Orders - Current: Current Medications Potassium Chloride 10 meq/ (Premix) 50 mls @ 50 mls/hr IV Q1H LEIA Stop: 08/09/21 16:59 Sodium Chloride (Normal Saline) 1,000 mls @ 125 mls/hr IV ASDIRECTED LEIA Discontinued Medications Dicyclomine HCl (Dicyclomine 20 Mg/2 Ml Sdv) 20 mg IM ONETIME ONE Stop: 08/09/21 01:59 Last Admin: 08/09/21 03:02 Dose: 20 mg Documented by: Fentanyl (Fentanyl 100 Mcg/2 Ml Sdv) 50 mcg IVPUSH ONETIME ONE Stop: 08/09/21 01:49 Last Admin: 08/09/21 02:00 Dose: 50 mcg Documented by: Hydromorphone HCl (Hydromorphone 1 Mg/Ml Syringe) 1 mg IVPUSH ONETIME ONE Stop: 08/09/21 00:37 Last Admin: 08/09/21 00:41 Dose: 1 mg Documented by: Potassium Chloride/Sodium Chloride (Normal Saline With 40 Meq Kcl) 1,000 mls @ 125 mls/hr IV ASDIRECTED LEIA Ciprofloxacin/Dextrose 400 mg/ (Premix) 200 mls @ 200 mls/hr IV STAT ONE Stop: 08/09/21 02:18 Last Admin: 08/09/21 03:01 Dose: 200 mls/hr Documented by: Metronidazole 500 mg/ Premix 100 mls @ 100 mls/hr IV ONETIME ONE Stop: 08/09/21 02:19 Last Admin: 08/09/21 04:16 Dose: 100 mls/hr Documented by: Potassium Chloride/Sodium Chloride (Normal Saline With 40 Meq Kcl) 1,000 mls @ 200 mls/hr IV ASDIRECTED LEIA Last Infusion: 08/09/21 05:58 Dose: 100 mls/hr Documented by: Iopamidol (Iopamidol 612 Mg/Ml 100 Ml Bottle) 100 ml IVPUSH ONETIME ONE Stop: 08/08/21 23:44 Iopamidol (Iopamidol 755 Mg/Ml 100 Ml Bottle) 100 ml IVPUSH ONETIME ONE Stop: 08/09/21 03:25 Methylprednisolone Sodium Succinate (Methylprednisolone Sodium Succinate 125 Mg/2 Ml Sdv) 125 mg IVPUSH ONETIME ONE Stop: 08/09/21 03:42 Last Admin: 08/09/21 04:17 Dose: 125 mg Documented by: Metoclopramide HCl (Metoclopramide 10 Mg/2 Ml Sdv) 10 mg IVPUSH ONETIME ONE Stop: 08/09/21 00:37 Last Admin: 08/09/21 00:36 Dose: 10 mg Documented by: Morphine Sulfate (Morphine 2 Mg/Ml Syringe) 4 mg IVPUSH ONETIME ONE Stop: 08/08/21 23:49 Last Admin: 08/08/21 23:35 Dose: 4 mg Documented by: Ondansetron HCl (Ondansetron 4 Mg/2 Ml Sdv) 4 mg IV ONETIME ONE Stop: 08/08/21 23:49 Last Admin: 08/08/21 23:37 Dose: 4 mg Documented by: - Exam General: Alert HEENT: Mucous Membr. Moist/[place] Neck: Supple Lungs: Clear to Auscultation Cardiovascular: Regular Rate, Regular Rhythm GI/Abdominal Exam: Normal Bowel Sounds, Soft (Female) Exam: Deferred Extremities: Normal Inspection, Normal Range of Motion, No Pedal Edema, Normal Capillary Refill - Patient Data Lab Results Last 24 hrs: Laboratory Results - last 24 hr 08/08/21 08/08/21 08/08/21 Range/Units 23:30 23:30 23:30 WBC 8.2 (4.0-10.0) x10^3/uL RBC 5.80 H (4.00-5.50) x10^6/uL Hgb 13.0 (12.0-16.0) g/dL Hct 40.2 (33.0-47.0) % MCV 69.3 L (78.0-93.0) fL MCH 22.4 L (26.0-32.0) pg MCHC 32.3 (32.0-36.0) g/dL RDW Coeff of Ruddy 18.3 H (10.0-15.0) % Plt Count 251 (130-400) x10^3/uL Immature Gran % (Auto) 0.40 (0.00-0.43) % Neut % (Auto) 94.6 H (50.0-80.0) % Lymph % (Auto) 3.7 L (25.0-50.0) % [place] % (Auto) 1.0 L (2.0-11.0) % Eos % (Auto) 0.2 (0.0-4.0) % Baso % (Auto) 0.1 L (0.2-1.2) % Neut # (Auto) 7.8 H (1.8-7.7) x10^3/uL Lymph # (Auto) 0.3 L (1.0-4.8) x10^3/uL [place] # (Auto) 0.1 (0.0-0.8) x10^3/uL Eos # (Auto) 0.0 (0.0-0.5) x10^3/uL Baso # (Auto) 0.0 (0.0-0.2) x10^3/uL Immature Gran # (Auto) 0.03 (0.00-0.07) x10^3/uL Add Manual Diff Neutrophils % (Manual) (50-80) % Band Neutrophils % (0-6) % Lymphocytes % (Manual) (25-50) % Monocytes % (Manual) (2-11) % Absolute Neutrophils (1.8-7.7) x10^3/uL Lymphocytes # (Manual) (1.0-4.8) x10^3/uL Monocytes # (Manual) (0.0-0.8) x10^3/uL Platelet Estimate Giant Platelets PT 10.2 (9.9-12.5) SEC INR 0.9 L (2.0-3.5) Sodium 141 (136-145) mmol/L Potassium 1.8 L* (3.5-5.1) mmol/L Chloride 102 (98-107) mmol/L Carbon Dioxide 23 (21-32) mmol/L Anion Gap 17.8 H (5-15) mmol/L BUN 39 H D (7-18) mg/dL Creatinine 2.1 H (0.55-1.02) mg/dL Est Cr Clr Drug Dosing TNP Estimated GFR (MDRD) 23 Glucose 143 H (70-99) mg/dL Lactic Acid (0.4-2.0) mmol/L Calcium 8.7 (8.5-10.1) mg/dL Corrected Calcium 9.1 (8.5-10.1) mg/dL Magnesium (1.8-2.4) mg/dL Total Bilirubin 0.4 (0.2-1.0) mg/dL AST 18 (15-37) U/L ALT 17 (14-59) U/L Alkaline Phosphatase 96 (46-116) U/L Troponin I High Sens 15 (<=51) ng/L C-Reactive Protein 0.8 (<=0.9) mg/dL NT-Pro-B Natriuret Pep 681 H (<=450) pg/mL Total Protein 6.1 L (6.4-8.2) g/dL Albumin 3.5 (3.4-5.0) g/dL Globulin 2.6 Albumin/Globulin Ratio 1.35 SARS CoV-2 RNA Rapid LAM (NEGATIVE) 08/08/21 08/09/21 08/09/21 Range/Units 23:30 02:40 02:42 WBC (4.0-10.0) x10^3/uL RBC (4.00-5.50) x10^6/uL Hgb (12.0-16.0) g/dL Hct (33.0-47.0) % MCV (78.0-93.0) fL MCH (26.0-32.0) pg MCHC (32.0-36.0) g/dL RDW Coeff of Ruddy (10.0-15.0) % Plt Count (130-400) x10^3/uL Immature Gran % (Auto) (0.00-0.43) % Neut % (Auto) (50.0-80.0) % Lymph % (Auto) (25.0-50.0) % [place] % (Auto) (2.0-11.0) % Eos % (Auto) (0.0-4.0) % Baso % (Auto) (0.2-1.2) % Neut # (Auto) (1.8-7.7) x10^3/uL Lymph # (Auto) (1.0-4.8) x10^3/uL [place] # (Auto) (0.0-0.8) x10^3/uL Eos # (Auto) (0.0-0.5) x10^3/uL Baso # (Auto) (0.0-0.2) x10^3/uL Immature Gran # (Auto) (0.00-0.07) x10^3/uL Add Manual Diff Neutrophils % (Manual) (50-80) % Band Neutrophils % (0-6) % Lymphocytes % (Manual) (25-50) % Monocytes % (Manual) (2-11) % Absolute Neutrophils (1.8-7.7) x10^3/uL Lymphocytes # (Manual) (1.0-4.8) x10^3/uL Monocytes # (Manual) (0.0-0.8) x10^3/uL Platelet Estimate Giant Platelets PT (9.9-12.5) SEC INR (2.0-3.5) Sodium (136-145) mmol/L Potassium (3.5-5.1) mmol/L Chloride (98-107) mmol/L Carbon Dioxide (21-32) mmol/L Anion Gap (5-15) mmol/L BUN (7-18) mg/dL Creatinine (0.55-1.02) mg/dL Est Cr Clr Drug Dosing Estimated GFR (MDRD) Glucose (70-99) mg/dL Lactic Acid 3.1 H* 2.2 H* (0.4-2.0) mmol/L Calcium (8.5-10.1) mg/dL Corrected Calcium (8.5-10.1) mg/dL Magnesium (1.8-2.4) mg/dL Total Bilirubin (0.2-1.0) mg/dL AST (15-37) U/L ALT (14-59) U/L Alkaline Phosphatase (46-116) U/L Troponin I High Sens (<=51) ng/L C-Reactive Protein (<=0.9) mg/dL NT-Pro-B Natriuret Pep (<=450) pg/mL Total Protein (6.4-8.2) g/dL Albumin (3.4-5.0) g/dL Globulin Albumin/Globulin Ratio SARS CoV-2 RNA Rapid LAM Negative (NEGATIVE) 08/09/21 08/09/21 Range/Units 07:45 07:45 WBC 11.4 H (4.0-10.0) x10^3/uL RBC 5.77 H (4.00-5.50) x10^6/uL Hgb 13.0 (12.0-16.0) g/dL Hct 41.6 (33.0-47.0) % MCV 72.1 L (78.0-93.0) fL MCH 22.5 L (26.0-32.0) pg MCHC 31.3 L (32.0-36.0) g/dL RDW Coeff of Ruddy 19.0 H (10.0-15.0) % Plt Count 254 (130-400) x10^3/uL Immature Gran % (Auto) (0.00-0.43) % Neut % (Auto) (50.0-80.0) % Lymph % (Auto) (25.0-50.0) % [place] % (Auto) (2.0-11.0) % Eos % (Auto) (0.0-4.0) % Baso % (Auto) (0.2-1.2) % Neut # (Auto) (1.8-7.7) x10^3/uL Lymph # (Auto) (1.0-4.8) x10^3/uL [place] # (Auto) (0.0-0.8) x10^3/uL Eos # (Auto) (0.0-0.5) x10^3/uL Baso # (Auto) (0.0-0.2) x10^3/uL Immature Gran # (Auto) (0.00-0.07) x10^3/uL Add Manual Diff Yes Neutrophils % (Manual) 54 (50-80) % Band Neutrophils % 37 H (0-6) % Lymphocytes % (Manual) 3 L (25-50) % Monocytes % (Manual) 6 (2-11) % Absolute Neutrophils 10.4 H (1.8-7.7) x10^3/uL Lymphocytes # (Manual) 0.3 L (1.0-4.8) x10^3/uL Monocytes # (Manual) 0.7 (0.0-0.8) x10^3/uL Platelet Estimate Adequate Giant Platelets Few H PT (9.9-12.5) SEC INR (2.0-3.5) Sodium 142 (136-145) mmol/L Potassium 2.1 L* (3.5-5.1) mmol/L Chloride 103 (98-107) mmol/L Carbon Dioxide 24 (21-32) mmol/L Anion Gap 17.1 H (5-15) mmol/L BUN 40 H (7-18) mg/dL Creatinine 2.5 H (0.55-1.02) mg/dL Est Cr Clr Drug Dosing 13.96 Estimated GFR (MDRD) 18 Glucose 158 H (70-99) mg/dL Lactic Acid (0.4-2.0) mmol/L Calcium 8.0 L (8.5-10.1) mg/dL Corrected Calcium (8.5-10.1) mg/dL Magnesium 2.0 (1.8-2.4) mg/dL Total Bilirubin (0.2-1.0) mg/dL AST (15-37) U/L ALT (14-59) U/L Alkaline Phosphatase (46-116) U/L Troponin I High Sens (<=51) ng/L C-Reactive Protein (<=0.9) mg/dL NT-Pro-B Natriuret Pep (<=450) pg/mL Total Protein (6.4-8.2) g/dL Albumin (3.4-5.0) g/dL Globulin Albumin/Globulin Ratio SARS CoV-2 RNA Rapid LAM (NEGATIVE) Result Diagrams: 08/09/21 07:45 08/09/21 07:45 [place] Results Last 24 hrs: Microbiology 08/09/21 00:26 Anaerobic Blood Culture - Final Blood - Venous - Lab Draw Sepsis Event Note - Evaluation Sepsis Screening Result: Possible Sepsis Risk - Focused Exam Vital Signs: Vital Signs Temp Pulse Resp BP Pulse Ox 08/09/21 06:00 36.7 C 93 16 117/54 L 90 L - Problem List & Annotations (1) Abdominal pain SNOMED Code(s): 51426359 Code(s): R10.9 - UNSPECIFIED ABDOMINAL PAIN Status: Acute Current Visit: Yes (2) Colitis SNOMED Code(s): 30992301 Code(s): K52.9 - NONINFECTIVE GASTROENTERITIS AND COLITIS, UNSPECIFIED Status: Acute Current Visit: Yes Annotation/Comment:: -WBC=11.4, Bands elevated. Afebrile. Will continue the Cipro and Flagyl at this time. (3) Hypokalemia SNOMED Code(s): 44460312 Code(s): E87.6 - HYPOKALEMIA Status: Acute Current Visit: Yes Annotation/Comment:: -K=2.1. Will replace Potassium with riders then repeat labs at 1800 tonight. Monitor vomiting and treat with Zofran as needed. - Problem List Review Problem List Initiated/Reviewed/Updated: Yes - My Orders Last 24 Hours: My Active Orders 08/09/21 08:52 Telemetry Monitoring [Cardiac Monitoring] [RC] . DIRECTED 08/09/21 09:00 Potassium Chloride Riders [KCl in Water 10 MEQ/50 ML] 10 meq Premix Bag 1 bag IV Q1H Sodium Chloride 0.9% [Normal Saline] 1,000 ml IV ASDIRECTED 08/09/21 18:00 BMP [BASIC METABOLIC PANEL,BMP] [CHEM] Routine CBC WITH AUTO DIFF [HEME] Timed LACTIC ACID [CHEM] Timed MAGNESIUM [CHEM] Timed - Plan Plan:: See Above.
[2021-08-09] MEDS: Sodium Chloride 0.9% 1,000 ML IV SCH ×2 (09:13→17:29)
[2021-08-09] MEDS: Potassium Chloride Riders 10 MEQ in Premix Bag 1 BAG IV SCH ×8 (09:13→17:20)
--- NOTE | 2021-08-09 10:14 | CT ---
[id number] CT/CTA Abdomen Pelvis EXAM: CTA Abdomen Pelvis CLINICAL DATA: SEVERE ABDOMINAL PAIN COMPARISON STUDY: 07/07/2021. FINDINGS: Dependent atelectasis at the lung bases bilaterally. Atherosclerotic calcifications of the aorta and its branches. Diffuse nonocclusive mural thrombus seen throughout the aorta. Stable descending thoracic aortic aneurysm measuring up to 4.2 cm. Fusiform aneurysm of the infrarenal abdominal aorta. The aneurysm sac size has increased when compared to the prior study. The aneurysm measures up to 5.7 cm, not significantly changed. Fusiform aneurysm of the aorta near the diaphragmatic hiatus located above origin of the celiac trunk. Sac measures 4.3 x 4.2 cm, not significant changed. Densely calcified atherosclerotic plaque at the ostia of both renal arteries. Incidentally noted is a retroaortic left renal vein. Colonic diverticulosis. The appendix is visualized and appears normal. The gallbladder is surgically absent. Liver, spleen, pancreas, and adrenal glands are unremarkable. No solid or suspicious enhancing renal lesions. Multilevel spondylosis. IMPRESSION: 1. Stable 5.7 cm fusiform infrarenal abdominal aortic aneurysm with extensive mural thrombus. 2. 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 3. Asymmetric thickening and pericolonic stranding at the splenic flexure. Additionally there is wall edema. Findings are consistent with focal colitis. This may be infectious/inflammatory in nature. Ischemic colitis is also in the differential. Surgical consultation is recommended. Colonoscopy could be considered once the patient has recovered from their acute illness to ensure no underlying mass. Zaki Collins DO 08/09/21 1013 Thank you for allowing us to participate in the care of your patient.
[2021-08-09] MEDS ORDERED: Dicyclomine 10 MG Cap PO PRN (11:34)
[2021-08-09] MEDS ORDERED: Morphine 2 MG/ML SYRINGE IVPUSH PRN (11:34)
[2021-08-09] MEDS: Ondansetron 4 MG/2 ML SDV IVPUSH PRN ×2 (12:02→20:02)
--- NOTE | 2021-08-09 12:07 | CR ---
[id number] RAD/RAD Chest PA or AP 1V EXAM: RAD Chest PA or AP 1V INDICATION: CHEST PAIN COMPARISON: None. DISCUSSION: Cardiomediastinal silhouette is normal in size and contour. No infiltrate, effusion, pneumothorax, or edema. Pulmonary hyperinflation. Low lung volumes associated vascular crowding. IMPRESSION: No acute cardiopulmonary abnormality. Zaki Collins DO 08/09/21 [id number] Thank you for allowing us to participate in the care of your patient.
[2021-08-09] MEDS: Iopamidol 755 Mg/ML 100 ML Bottle IVPUSH ONE (12:55)
[2021-08-09] MEDS: fentaNYL 50 MCG/ML SDV IVPUSH PRN ×3 (13:12→20:02)
--- NOTE | 2021-08-09 15:00 | PN ---
Progress Note for WERNER GOMEZ Date: 08/09/2021 Room #: VM.215 CHIEF COMPLAINT: Abdominal pain. SUBJECTIVE: An 80-year-old female patient was admitted to observation early this morning for acute onset of abdominal pain, nausea, and vomiting. The patient was brought to the emergency room by her daughter. The patient stated that she had severe diarrhea approximately 3 weeks ago. No blood or black stools. Her nausea has been "retching." The patient denies any fevers or chills. No chest pain or shortness of breath. No cough. No headache, dizziness, or lightheadedness. Abdominal pain is generalized. She has had a poor appetite. No palpitations. No leg swelling. The CT scan in the emergency room showed stable 5.7 cm fusiform infrarenal abdominal aortic aneurysm with extensive mural thrombus. Stable fusiform aneurysm of the aorta and the diaphragmatic hiatus. Asymptomatic thickening and pericolonic stranding at the splenic flexure. There is also some edema. This is consistent with focal colitis. PHYSICAL EXAMINATION: Vital Signs: Temperature 98.0, pulse 87, blood pressure 98/43, respiratory rate 16, and oxygen 93% on room air. Skin: Intact, warm and dry. Respiratory: Lungs are decreased throughout, otherwise clear. Cardiovascular: Regular rate and rhythm, no murmur. Abdomen: Generalized tenderness. The patient feels very nauseated. Continues to vomit. Extremities: No edema. Neurological: The patient is alert. Patient is oriented to person, place, and time. No focal neurological deficit. LABORATORY STUDIES: 1. CBC: White blood cell count of 11.4, hemoglobin 13.0, hematocrit 41.6, and platelets 254,000. 2. BMP: Sodium 142, potassium 2.1, chloride 103, CO2 of 24, anion gap 17.1, BUN 40, creatinine 2.5, GFR 18, glucose 158, and calcium 8.0. 3. COVID-19 is negative. ASSESSMENT: 1. Acute colitis. 2. Severe hypokalemia. 3. Acute renal failure. PLAN: An 80-year-old female patient was admitted to the observation unit early this morning for the above diagnoses. The patient will change status to acute care given the low potassium and acute renal failure. We will continue with IV potassium. Continue with IV fluids. The patient's pain will be controlled with fentanyl. The patient is a code 2. The patient does wish to transfer to a higher level of care should the need arise. Continue n.p.o. Recheck laboratory work at 6 p.m. tonight or at least 1 hour after last potassium infusion. We will again recheck laboratory work tomorrow morning. TB: 08/09/2021 13:42:33 MODL: 08/09/2021 14:33:59 /[id number]
[2021-08-09 20:21] LABS: ANION GAP 15.9 mmol/L (5-15)
[2021-08-09] MEDS: Ciprofloxacin in D5W 400 MG in Premix Bag 1 BAG IV SCH ×2 (21:07)
[2021-08-09] MEDS: metroNIDAZOLE/Normal Saline 500 MG in Premix Bag 1 BAG IV SCH (21:14)
[2021-08-10] MEDS: fentaNYL 50 MCG/ML SDV IVPUSH PRN ×2 (02:10→09:04)
[2021-08-10] MEDS: Sodium Chloride 0.9% 1,000 ML IV SCH ×2 (03:44→16:23)
[2021-08-10] MEDS: metroNIDAZOLE/Normal Saline 500 MG in Premix Bag 1 BAG IV SCH (03:44)
[2021-08-10 07:04] LABS: ANION GAP 17.1 mmol/L (5-15)
[2021-08-10] MEDS: Ciprofloxacin in D5W 400 MG in Premix Bag 1 BAG IV SCH ×2 (09:08)
[2021-08-10] MEDS ORDERED: Potassium Chloride 10 MEQ Tab.ER PO ONE (10:17)
[2021-08-10] MEDS ORDERED: Calcium Carbonate 750 MG Tab.Chew PO ONE (10:18)
[2021-08-10] MEDS: Piperacillin/Tazobactam 3.375 GM in Sodium Chloride 0.9% 100 ML IV SCH ×2 (11:46→20:31)
[2021-08-10] MEDS ORDERED: Albuterol HFA 18 Gm Inhaler INH PRN (15:00)
--- NOTE | 2021-08-10 15:21 | PCM.PN ---
- General Info Date of Service: 08/10/21 Admission Dx/Problem (Free Text): Colitis Subjective Update: Patient is an 80-year-old female who was admitted on 08/09/2021 for abdominal pain, nausea, vomiting. She had told the provider at the time of admit that she had been having some severe diarrhea of about 3 weeks time. She is having upwards of 7+ bowel movements per day. Did have mild leukocytosis as well as an [facility]AIS[facility] on admission. CT scan of the abdomen did show thickening and stranding demo nstrating a focal colitis. She was admitted and placed on IV fluids as well as potassium replacement and pain control. She was placed on Cipro and Flagyl for the colitis. Overnight she has remained clinically stable. She denies any fevers or chills. Vital signs are relatively normal. She is actually needing oxygen up to 3 L at rest to maintain sats in the upper to high 90s. WBCs have actually gone up throughout the course of last 24 hours. This morning her potassium is slightly low her calcium slightly low as well. She does continue to have an anion gap. She is being hydrated with normal saline at 125mL/hr. Review of her labs this morning it actually looks like she also may have a concurrent UTI. We did discuss her worsening labs with her and her daughter this morning. We will plan to switch of the antibiotics today. We will also change her pain control regiment from fentanyl to Dilaudid. Given the multiple loose stools we will also get a C. difficile test although it sounds if she has not been on any antibiotics as of late nor has she been exposed to anybody who has C. difficile. - Review of Systems General: Reports: Weakness, Fatigue HEENT: Reports: No Symptoms Pulmonary: Reports: Shortness of Breath, Other (not wanting to breath deep: hurts the stomach) Cardiovascular: Reports: No Symptoms Gastrointestinal: Reports: Abdominal Pain, Diarrhea, Nausea Genitourinary: Reports: No Symptoms Musculoskeletal: Reports: No Symptoms Skin: Reports: No Symptoms Neurological: Reports: No Symptoms Psychiatric: Reports: No Symptoms - Patient Data Vitals - Most Recent: Last Vital Signs Temp 98.4 F 08/10/21 14:00 Pulse 103 H 08/10/21 14:00 Resp 20 08/10/21 14:00 BP 122/65 08/10/21 14:00 Pulse Ox 97 08/10/21 14:00 Weight - Most Recent: 133 lb 4.8 oz I&O - Last 24 Hours: Intake & Output 08/10/21 08/10/21 08/10/21 06:59 14:59 22:59 Intake Total 1300 Output Total 400 Balance 900 Lab Results Last 24 Hours: Laboratory Results - last 24 hr 08/09/21 08/09/21 08/09/21 Range/Units 19:57 19:57 19:57 WBC 25.0 H* (4.0-10.0) x10^3/uL RBC 5.29 (4.00-5.50) x10^6/uL Hgb 12.0 (12.0-16.0) g/dL Hct 37.8 (33.0-47.0) % MCV 71.5 L (78.0-93.0) fL MCH 22.7 L (26.0-32.0) pg MCHC 31.7 L (32.0-36.0) g/dL RDW Coeff of Ruddy 19.0 H (10.0-15.0) % Plt Count 220 (130-400) x10^3/uL Add Manual Diff Yes Neutrophils % (Manual) 56 (50-80) % Band Neutrophils % 38 H (0-6) % Lymphocytes % (Manual) 3 L (25-50) % Monocytes % (Manual) 3 (2-11) % Absolute Neutrophils 23.5 H (1.8-7.7) x10^3/uL Lymphocytes # (Manual) 0.8 L (1.0-4.8) x10^3/uL Monocytes # (Manual) 0.8 (0.0-0.8) x10^3/uL Platelet Estimate Adequate Hypochromasia Anisocytosis Ovalocytes 2+ moderate H Sodium 143 (136-145) mmol/L Potassium 3.9 D (3.5-5.1) mmol/L Chloride 108 H (98-107) mmol/L Carbon Dioxide 23 (21-32) mmol/L Anion Gap 15.9 H (5-15) mmol/L BUN 42 H (7-18) mg/dL Creatinine 2.5 H (0.55-1.02) mg/dL Est Cr Clr Drug Dosing 14.21 mL/min Estimated GFR (MDRD) 18 Glucose 127 H (70-99) mg/dL Lactic Acid (0.4-2.0) mmol/L Calcium 7.9 L (8.5-10.1) mg/dL Magnesium 1.8 (1.8-2.4) mg/dL Urine Color (YELLOW) Urine Appearance (CLEAR) Urine pH (5.0-8.0) Ur Specific [place] Urine Protein (NEGATIVE) mg/dL Urine Glucose (UA) (NEGATIVE) mg/dL Urine Ketones (NEGATIVE) mg/dL Urine Occult Blood (NEGATIVE) Urine Nitrite (NEGATIVE) Urine Bilirubin (NEGATIVE) Urine Urobilinogen (0.2) EU/dL Ur Leukocyte Esterase (NEGATIVE) Urine RBC (NOT SEEN) /HPF Urine WBC (NOT SEEN) /HPF Ur Squamous Epith Cells (NOT SEEN) /HPF Urine Bacteria (NOT SEEN) /HPF Granular Casts (Auto) Urine Mucus (NOT SEEN) /LPF 08/09/21 08/10/21 08/10/21 Range/Units 19:57 06:30 06:30 WBC 26.6 H* (4.0-10.0) x10^3/uL RBC 5.29 (4.00-5.50) x10^6/uL Hgb 11.9 L (12.0-16.0) g/dL Hct 37.6 (33.0-47.0) % MCV 71.1 L (78.0-93.0) fL MCH 22.5 L (26.0-32.0) pg MCHC 31.6 L (32.0-36.0) g/dL RDW Coeff of Ruddy 19.3 H (10.0-15.0) % Plt Count 203 (130-400) x10^3/uL Add Manual Diff Yes Neutrophils % (Manual) 73 (50-80) % Band Neutrophils % 22 H (0-6) % Lymphocytes % (Manual) 4 L (25-50) % Monocytes % (Manual) 1 L (2-11) % Absolute Neutrophils 25.3 H (1.8-7.7) x10^3/uL Lymphocytes # (Manual) 1.1 (1.0-4.8) x10^3/uL Monocytes # (Manual) 0.3 (0.0-0.8) x10^3/uL Platelet Estimate Adequate Hypochromasia 2+ moderate H Anisocytosis 1+ slight H Ovalocytes Sodium 145 (136-145) mmol/L Potassium 3.1 L (3.5-5.1) mmol/L Chloride 109 H (98-107) mmol/L Carbon Dioxide 22 (21-32) mmol/L Anion Gap 17.1 H (5-15) mmol/L BUN 43 H (7-18) mg/dL Creatinine 2.0 H (0.55-1.02) mg/dL Est Cr Clr Drug Dosing 17.77 mL/min Estimated GFR (MDRD) 24 Glucose 95 (70-99) mg/dL Lactic Acid 2.2 H* (0.4-2.0) mmol/L Calcium 7.7 L (8.5-10.1) mg/dL Magnesium 1.9 (1.8-2.4) mg/dL Urine Color (YELLOW) Urine Appearance (CLEAR) Urine pH (5.0-8.0) Ur Specific [place] Urine Protein (NEGATIVE) mg/dL Urine Glucose (UA) (NEGATIVE) mg/dL Urine Ketones (NEGATIVE) mg/dL Urine Occult Blood (NEGATIVE) Urine Nitrite (NEGATIVE) Urine Bilirubin (NEGATIVE) Urine Urobilinogen (0.2) EU/dL Ur Leukocyte Esterase (NEGATIVE) Urine RBC (NOT SEEN) /HPF Urine WBC (NOT SEEN) /HPF Ur Squamous Epith Cells (NOT SEEN) /HPF Urine Bacteria (NOT SEEN) /HPF Granular Casts (Auto) Urine Mucus (NOT SEEN) /LPF 08/10/21 Range/Units 07:20 WBC (4.0-10.0) x10^3/uL RBC (4.00-5.50) x10^6/uL Hgb (12.0-16.0) g/dL Hct (33.0-47.0) % MCV (78.0-93.0) fL MCH (26.0-32.0) pg MCHC (32.0-36.0) g/dL RDW Coeff of Ruddy (10.0-15.0) % Plt Count (130-400) x10^3/uL Add Manual Diff Neutrophils % (Manual) (50-80) % Band Neutrophils % (0-6) % Lymphocytes % (Manual) (25-50) % Monocytes % (Manual) (2-11) % Absolute Neutrophils (1.8-7.7) x10^3/uL Lymphocytes # (Manual) (1.0-4.8) x10^3/uL Monocytes # (Manual) (0.0-0.8) x10^3/uL Platelet Estimate Hypochromasia Anisocytosis Ovalocytes Sodium (136-145) mmol/L Potassium (3.5-5.1) mmol/L Chloride (98-107) mmol/L Carbon Dioxide (21-32) mmol/L Anion Gap (5-15) mmol/L BUN (7-18) mg/dL Creatinine (0.55-1.02) mg/dL Est Cr Clr Drug Dosing mL/min Estimated GFR (MDRD) Glucose (70-99) mg/dL Lactic Acid (0.4-2.0) mmol/L Calcium (8.5-10.1) mg/dL Magnesium (1.8-2.4) mg/dL Urine Color Yellow (YELLOW) Urine Appearance Slightly cloudy H (CLEAR) Urine pH 5.5 (5.0-8.0) Ur Specific [place] 1.015 Urine Protein Trace H (NEGATIVE) mg/dL Urine Glucose (UA) Negative (NEGATIVE) mg/dL Urine Ketones Negative (NEGATIVE) mg/dL Urine Occult Blood Moderate H (NEGATIVE) Urine Nitrite Negative (NEGATIVE) Urine Bilirubin Negative (NEGATIVE) Urine Urobilinogen 0.2 (0.2) EU/dL Ur Leukocyte Esterase Trace H (NEGATIVE) Urine RBC 5-10 H (NOT SEEN) /HPF Urine WBC 5-10 H (NOT SEEN) /HPF Ur Squamous Epith Cells Few H (NOT SEEN) /HPF Urine Bacteria Occasional H (NOT SEEN) /HPF Granular Casts (Auto) Occasional Urine Mucus Rare H (NOT SEEN) /LPF [place] Results Last 24 Hours: Microbiology 08/09/21 00:26 Aerobic Blood Culture - Preliminary Blood - Venous - Lab Draw Gram Negative Rods Anaerobic Blood Culture - Final 08/09/21 00:20 Aerobic Blood Culture - Preliminary Blood - Venous Gram Negative Rods Anaerobic Blood Culture - Preliminary Gram Negative Rods Med Orders - Current: Current Medications Albuterol (Albuterol Hfa 18 Gm Inhaler) gm INH Q4H PRN PRN Reason: WHEEXING OR SOB Clopidogrel Bisulfate (Clopidogrel 75 Mg Tab) 75 mg PO DAILY LEAI Dicyclomine HCl (Dicyclomine 10 Mg Cap) 10 mg PO QIDACANDBED PRN PRN Reason: Pain Last Admin: 08/09/21 12:02 Dose: 10 mg Documented by: Hydromorphone HCl (Hydromorphone 1 Mg/Ml Syringe) 1 mg IVPUSH Q4H PRN PRN Reason: Pain Sodium Chloride (Normal Saline) 1,000 mls @ 125 mls/hr IV ASDIRECTED [facility] Last Admin: 08/10/21 03:44 Dose: 125 mls/hr Documented by: Piperacillin Sod/Tazobactam (Sod 3.375 gm/ Sodium Chloride) 100 mls @ 25 mls/hr IV Q8H [facility] Last Admin: 08/10/21 11:46 Dose: 25 mls/hr Documented by: Ondansetron HCl (Ondansetron 4 Mg/2 Ml Sdv) 4 mg IVPUSH Q6H PRN PRN Reason: Nausea Last Admin: 08/09/21 20:02 Dose: 4 mg Documented by: Potassium Chloride (Potassium Chloride 20 Meq Tab.Er) 20 meq PO DAILY [facility] Vancomycin HCl (Pharmacy To Dose - Vancomycin) 1 dose .XX ASDIRECTED [facility] Discontinued Medications Calcium Carbonate/Glycine (Calcium Carbonate 750 Mg Tab.Chew) 750 mg PO ONETIME ONE Stop: 08/10/21 10:19 Last Admin: 08/10/21 11:46 Dose: 750 mg Documented by: Dicyclomine HCl (Dicyclomine 20 Mg/2 Ml Sdv) 20 mg IM ONETIME ONE Stop: 08/09/21 01:59 Last Admin: 08/09/21 03:02 Dose: 20 mg Documented by: Fentanyl (Fentanyl 100 Mcg/2 Ml Sdv) 50 mcg IVPUSH ONETIME ONE Stop: 08/09/21 01:49 Last Admin: 08/09/21 02:00 Dose: 50 mcg Documented by: Fentanyl (Fentanyl 50 Mcg/Ml Sdv) 12.5 mcg IVPUSH Q2H PRN PRN Reason: Abdominal Pain Last Admin: 08/10/21 09:04 Dose: 12.5 mcg Documented by: Hydromorphone HCl (Hydromorphone 1 Mg/Ml Syringe) 1 mg IVPUSH ONETIME ONE Stop: 08/09/21 00:37 Last Admin: 08/09/21 00:41 Dose: 1 mg Documented by: Potassium Chloride/Sodium Chloride (Normal Saline With 40 Meq Kcl) 1,000 mls @ 125 mls/hr IV ASDIRECTED [facility] Ciprofloxacin/Dextrose 400 mg/ (Premix) 200 mls @ 200 mls/hr IV STAT ONE Stop: 08/09/21 02:18 Last Admin: 08/09/21 03:01 Dose: 200 mls/hr Documented by: Metronidazole 500 mg/ Premix 100 mls @ 100 mls/hr IV ONETIME ONE Stop: 08/09/21 02:19 Last Admin: 08/09/21 04:16 Dose: 100 mls/hr Documented by: Potassium Chloride/Sodium Chloride (Normal Saline With 40 Meq Kcl) 1,000 mls @ 200 mls/hr IV ASDIRECTED [facility] Last Infusion: 08/09/21 05:58 Dose: 100 mls/hr Documented by: Potassium Chloride 10 meq/ (Premix) 50 mls @ 50 mls/hr IV Q1H [facility] Stop: 08/09/21 16:59 Last Admin: 08/09/21 17:20 Dose: 50 mls/hr Documented by: Ciprofloxacin/Dextrose 400 mg/ (Premix) 200 mls @ 200 mls/hr IV Q12H [facility] Last Admin: 08/10/21 09:08 Dose: Not Given Documented by: Metronidazole 500 mg/ Premix 100 mls @ 100 mls/hr IV Q8H [facility] Last Admin: 08/10/21 03:44 Dose: 100 mls/hr Documented by: Iopamidol (Iopamidol 612 Mg/Ml 100 Ml Bottle) 100 ml IVPUSH ONETIME ONE Stop: 08/08/21 23:44 Last Admin: 08/09/21 12:58 Dose: Not Given Documented by: Iopamidol (Iopamidol 755 Mg/Ml 100 Ml Bottle) 100 ml IVPUSH ONETIME ONE Stop: 08/09/21 03:25 Last Admin: 08/09/21 12:55 Dose: Not Given Documented by: Methylprednisolone Sodium Succinate (Methylprednisolone Sodium Succinate 125 Mg/2 Ml Sdv) 125 mg IVPUSH ONETIME ONE Stop: 08/09/21 03:42 Last Admin: 08/09/21 04:17 Dose: 125 mg Documented by: Metoclopramide HCl (Metoclopramide 10 Mg/2 Ml Sdv) 10 mg IVPUSH ONETIME ONE Stop: 08/09/21 00:37 Last Admin: 08/09/21 00:36 Dose: 10 mg Documented by: Morphine Sulfate (Morphine 2 Mg/Ml Syringe) 4 mg IVPUSH ONETIME ONE Stop: 08/08/21 23:49 Last Admin: 08/08/21 23:35 Dose: 4 mg Documented by: Morphine Sulfate (Morphine 2 Mg/Ml Syringe) 1 mg IVPUSH Q2H PRN PRN Reason: Pain Ondansetron HCl (Ondansetron 4 Mg/2 Ml Sdv) 4 mg IV ONETIME ONE Stop: 08/08/21 23:49 Last Admin: 08/08/21 23:37 Dose: 4 mg Documented by: Potassium Chloride (Potassium Chloride 10 Meq Tab.Er) 40 meq PO ONETIME ONE Stop: 08/10/21 10:18 Last Admin: 08/10/21 11:46 Dose: 40 meq Documented by: - Exam Quality Assessment: Supplemental Oxygen (3L with sats in the upper 90s) General: Alert, Oriented, Cooperative, Mild Distress HEENT: Mucous Membr. Moist/[place] Neck: Supple Lungs: Clear to Auscultation, Normal Respiratory Effort Cardiovascular: Regular Rate, Regular Rhythm GI/Abdominal Exam: Soft, Tender (to light touch throughout), Abnormal Bowel Sounds (hypoactive) Extremities: Normal Inspection, No Pedal Edema Skin: Warm, Dry Psy/Mental Status: Alert, Normal Affect, Normal Mood - Patient Data Lab Results Last 24 hrs: Laboratory Results - last 24 hr 08/09/21 08/09/21 08/09/21 Range/Units 19:57 19:57 19:57 WBC 25.0 H* (4.0-10.0) x10^3/uL RBC 5.29 (4.00-5.50) x10^6/uL Hgb 12.0 (12.0-16.0) g/dL Hct 37.8 (33.0-47.0) % MCV 71.5 L (78.0-93.0) fL MCH 22.7 L (26.0-32.0) pg MCHC 31.7 L (32.0-36.0) g/dL RDW Coeff of Ruddy 19.0 H (10.0-15.0) % Plt Count 220 (130-400) x10^3/uL Add Manual Diff Yes Neutrophils % (Manual) 56 (50-80) % Band Neutrophils % 38 H (0-6) % Lymphocytes % (Manual) 3 L (25-50) % Monocytes % (Manual) 3 (2-11) % Absolute Neutrophils 23.5 H (1.8-7.7) x10^3/uL Lymphocytes # (Manual) 0.8 L (1.0-4.8) x10^3/uL Monocytes # (Manual) 0.8 (0.0-0.8) x10^3/uL Platelet Estimate Adequate Hypochromasia Anisocytosis Ovalocytes 2+ moderate H Sodium 143 (136-145) mmol/L Potassium 3.9 D (3.5-5.1) mmol/L Chloride 108 H (98-107) mmol/L Carbon Dioxide 23 (21-32) mmol/L Anion Gap 15.9 H (5-15) mmol/L BUN 42 H (7-18) mg/dL Creatinine 2.5 H (0.55-1.02) mg/dL Est Cr Clr Drug Dosing 14.21 mL/min Estimated GFR (MDRD) 18 Glucose 127 H (70-99) mg/dL Lactic Acid (0.4-2.0) mmol/L Calcium 7.9 L (8.5-10.1) mg/dL Magnesium 1.8 (1.8-2.4) mg/dL Urine Color (YELLOW) Urine Appearance (CLEAR) Urine pH (5.0-8.0) Ur Specific [place] Urine Protein (NEGATIVE) mg/dL Urine Glucose (UA) (NEGATIVE) mg/dL Urine Ketones (NEGATIVE) mg/dL Urine Occult Blood (NEGATIVE) Urine Nitrite (NEGATIVE) Urine Bilirubin (NEGATIVE) Urine Urobilinogen (0.2) EU/dL Ur Leukocyte Esterase (NEGATIVE) Urine RBC (NOT SEEN) /HPF Urine WBC (NOT SEEN) /HPF Ur Squamous Epith Cells (NOT SEEN) /HPF Urine Bacteria (NOT SEEN) /HPF Granular Casts (Auto) Urine Mucus (NOT SEEN) /LPF 08/09/21 08/10/21 08/10/21 Range/Units 19:57 06:30 06:30 WBC 26.6 H* (4.0-10.0) x10^3/uL RBC 5.29 (4.00-5.50) x10^6/uL Hgb 11.9 L (12.0-16.0) g/dL Hct 37.6 (33.0-47.0) % MCV 71.1 L (78.0-93.0) fL MCH 22.5 L (26.0-32.0) pg MCHC 31.6 L (32.0-36.0) g/dL RDW Coeff of Ruddy 19.3 H (10.0-15.0) % Plt Count 203 (130-400) x10^3/uL Add Manual Diff Yes Neutrophils % (Manual) 73 (50-80) % Band Neutrophils % 22 H (0-6) % Lymphocytes % (Manual) 4 L (25-50) % Monocytes % (Manual) 1 L (2-11) % Absolute Neutrophils 25.3 H (1.8-7.7) x10^3/uL Lymphocytes # (Manual) 1.1 (1.0-4.8) x10^3/uL Monocytes # (Manual) 0.3 (0.0-0.8) x10^3/uL Platelet Estimate Adequate Hypochromasia 2+ moderate H Anisocytosis 1+ slight H Ovalocytes Sodium 145 (136-145) mmol/L Potassium 3.1 L (3.5-5.1) mmol/L Chloride 109 H (98-107) mmol/L Carbon Dioxide 22 (21-32) mmol/L Anion Gap 17.1 H (5-15) mmol/L BUN 43 H (7-18) mg/dL Creatinine 2.0 H (0.55-1.02) mg/dL Est Cr Clr Drug Dosing 17.77 mL/min Estimated GFR (MDRD) 24 Glucose 95 (70-99) mg/dL Lactic Acid 2.2 H* (0.4-2.0) mmol/L Calcium 7.7 L (8.5-10.1) mg/dL Magnesium 1.9 (1.8-2.4) mg/dL Urine Color (YELLOW) Urine Appearance (CLEAR) Urine pH (5.0-8.0) Ur Specific [place] Urine Protein (NEGATIVE) mg/dL Urine Glucose (UA) (NEGATIVE) mg/dL Urine Ketones (NEGATIVE) mg/dL Urine Occult Blood (NEGATIVE) Urine Nitrite (NEGATIVE) Urine Bilirubin (NEGATIVE) Urine Urobilinogen (0.2) EU/dL Ur Leukocyte Esterase (NEGATIVE) Urine RBC (NOT SEEN) /HPF Urine WBC (NOT SEEN) /HPF Ur Squamous Epith Cells (NOT SEEN) /HPF Urine Bacteria (NOT SEEN) /HPF Granular Casts (Auto) Urine Mucus (NOT SEEN) /LPF 08/10/21 Range/Units 07:20 WBC (4.0-10.0) x10^3/uL RBC (4.00-5.50) x10^6/uL Hgb (12.0-16.0) g/dL Hct (33.0-47.0) % MCV (78.0-93.0) fL MCH (26.0-32.0) pg MCHC (32.0-36.0) g/dL RDW Coeff of Ruddy (10.0-15.0) % Plt Count (130-400) x10^3/uL Add Manual Diff Neutrophils % (Manual) (50-80) % Band Neutrophils % (0-6) % Lymphocytes % (Manual) (25-50) % Monocytes % (Manual) (2-11) % Absolute Neutrophils (1.8-7.7) x10^3/uL Lymphocytes # (Manual) (1.0-4.8) x10^3/uL Monocytes # (Manual) (0.0-0.8) x10^3/uL Platelet Estimate Hypochromasia Anisocytosis Ovalocytes Sodium (136-145) mmol/L Potassium (3.5-5.1) mmol/L Chloride (98-107) mmol/L Carbon Dioxide (21-32) mmol/L Anion Gap (5-15) mmol/L BUN (7-18) mg/dL Creatinine (0.55-1.02) mg/dL Est Cr Clr Drug Dosing mL/min Estimated GFR (MDRD) Glucose (70-99) mg/dL Lactic Acid (0.4-2.0) mmol/L Calcium (8.5-10.1) mg/dL Magnesium (1.8-2.4) mg/dL Urine Color Yellow (YELLOW) Urine Appearance Slightly cloudy H (CLEAR) Urine pH 5.5 (5.0-8.0) Ur Specific [place] 1.015 Urine Protein Trace H (NEGATIVE) mg/dL Urine Glucose (UA) Negative (NEGATIVE) mg/dL Urine Ketones Negative (NEGATIVE) mg/dL Urine Occult Blood Moderate H (NEGATIVE) Urine Nitrite Negative (NEGATIVE) Urine Bilirubin Negative (NEGATIVE) Urine Urobilinogen 0.2 (0.2) EU/dL Ur Leukocyte Esterase Trace H (NEGATIVE) Urine RBC 5-10 H (NOT SEEN) /HPF Urine WBC 5-10 H (NOT SEEN) /HPF Ur Squamous Epith Cells Few H (NOT SEEN) /HPF Urine Bacteria Occasional H (NOT SEEN) /HPF Granular Casts (Auto) Occasional Urine Mucus Rare H (NOT SEEN) /LPF Result Diagrams: 08/10/21 06:30 08/10/21 06:30 [place] Results Last 24 hrs: Microbiology 08/09/21 00:26 Aerobic Blood Culture - Preliminary Blood - Venous - Lab Draw Gram Negative Rods Anaerobic Blood Culture - Final 08/09/21 00:20 Aerobic Blood Culture - Preliminary Blood - Venous Gram Negative Rods Anaerobic Blood Culture - Preliminary Gram Negative Rods Sepsis Event Note - Evaluation Sepsis Screening Result: Severe Sepsis Risk - Focused Exam Vital Signs: Vital Signs Temp Pulse Resp BP Pulse Ox Pulse Ox 08/10/21 14:00 98.4 F 103 H 20 122/65 97 08/10/21 09:47 98.6 F 102 H 24 H 125/64 98 08/10/21 08:00 97 08/10/21 06:17 98.6 F 103 H 18 133/67 95 - Problem List & Annotations (1) Colitis SNOMED Code(s): 89471688 Code(s): K52.9 - NONINFECTIVE GASTROENTERITIS AND COLITIS, UNSPECIFIED Status: Acute Current Visit: Yes Annotation/Comment:: -WBC=11.4, Bands elevated. Afebrile. Will continue the Cipro and Flagyl at this time. (2) Hypokalemia SNOMED Code(s): 18691586 Code(s): E87.6 - HYPOKALEMIA Status: Acute Current Visit: Yes Anno tation/Comment:: -K=2.1. Will replace Potassium with riders then repeat labs at 1800 tonight. Monitor vomiting and treat with Zofran as needed. (3) Sepsis SNOMED Code(s): 27354896 Code(s): A41.9 - SEPSIS, UNSPECIFIED ORGANISM Status: Acute Current Visit: Yes (4) UTI (urinary tract infection) SNOMED Code(s): 17401537 Code(s): N39.0 - URINARY TRACT INFECTION, SITE NOT SPECIFIED Status: Acute Current Visit: Yes - Problem List Review Problem List Initiated/Reviewed/Updated: Yes - My Orders Last 24 Hours: My Active Orders 08/10/21 10:15 Dietary Supplements [RC] BIDMEALS 08/10/21 10:16 HYDROmorphone [Dilaudid] 1 mg IVPUSH Q4H PRN 08/10/21 10:17 Isolation [COMM] Stat 08/10/21 11:00 CLOSTRIDIUM DIFFICILE TOX RFLX [MREF] Routine 08/10/21 12:00 Piperacillin/Tazobactam [Zosyn] 3.375 gm Sodium Chloride 0.9% [Normal Saline] 100 ml IV Q8H 08/10/21 15:00 Albuterol [Ventolin HFA] 2 puff INH Q4H PRN 08/10/21 15:15 Clopidogrel [Plavix] 75 mg PO DAILY Pharmacy to Dose - Vancomycin 1 dose .XX ASDIRECTED 08/10/21 Dinner Advance Diet Instructions [DIET] 08/11/21 06:00 BASIC METABOLIC PANEL,BMP [CHEM] Routine CBC WITH AUTO DIFF [HEME] Routine LACTIC ACID [CHEM] Routine 08/11/21 08:00 Potassium Chloride [Klor-Con M20] 20 meq PO DAILY - Plan Plan:: Angelic is an 80-year-old female who is hospital day 2 for evaluation treatment of colitis. Colitis Sepsis -Patient with labs and CT findings of colitis. Vital signs, leukocytosis, lactic acid indicating sepsis -Patient did not have much response to Cipro and Flagyl overnight as she has had some worsening of leukocytosis in this timeframe -Family questioning fentanyl with pain control option -Blood cultures growing out gram-negative rods Plan: -We will change antibiotics to vancomycin and Zosyn -Change pain medication to Dilaudid 1 mg every 4 hours scheduled -Repeat CBC in the morning. Repeat lactic acid as well -We will monitor blood cultures for organism as well as sensitivities and adjust antibiotic regiment as indicated -C. difficile testing ordered -Patient okay to advance type diet as tolerated although does not have any interest at this time -If patient continues to clinically worsen in the setting of her change in antibiotics consideration for transfer to [place] for specialist care. Hypoxia -Likely secondary to the above as patient does not want to breathe deep against a very tender abdomen Plan: -Continue supplemental oxygen as needed -Consideration given for CTA of the chest if not improving (cautious though as we have other cause for this and patient does have [facility]) Hypokalemia -Some improvement after initial replacement, low this morning Plan: -Vitamin K replaced today -Repeat BMP in the morning Hypocalcemia -Calcium level mildly low today Plan: -Calcium replaced today -Repeat BMP in the morning UTI -Urinalysis with signs of mild UTI -Patient should be covered with the above antibiotic regiment Plan: -Continue antibiotics as above [facility] -Some improvement overnight with IV fluids, baseline creatinine 1.4-1.5 Plan: -Continue with IV fluids at 125 mils per hour -Repeat BMP in the morning Chronic: -Hypertension: Blood pressure controlled/mildly low. We are holding her home hydrochlorothiazide at this time -Peripheral artery disease: We will restart patient's Plavix -Hyperlipidemia: Holding patient's home Crestor at this time -GERD: Holding patient's home omeprazole at this time DVT: Heparin SQ Diet: Advance as tolerated IVF: NS CODE: DNR/DNI Disposition: Guarded. Given patient's worsening laboratory status we will be switching of the antibiotic regiment today. We will continue to replace and monitor her electrolytes as well. We will continue to monitor her here overnight unless acutely worsening clinical picture. If patient worsens over the next 24 hours we will have a low threshold to transfer to [place] for further care.
[2021-08-10] MEDS ORDERED: VANCOmycin 1.25 GM/250 ML 1.25 GM in Premix Bag 1 BAG IV ONE (16:00)
[2021-08-10] MEDS: Clopidogrel 75 MG Tab PO SCH (16:11)
[2021-08-10] MEDS: Heparin Sodium 5,000 Units/ML Vial SUBCUT SCH ×2 (16:11→23:28)
[2021-08-10] MEDS: HYDROmorphone 1 MG/ML Syringe IVPUSH PRN ×2 (16:22→22:29)
[2021-08-11] MEDS: Sodium Chloride 0.9% 1,000 ML IV SCH ×3 (01:56→22:30)
[2021-08-11] MEDS: Piperacillin/Tazobactam 3.375 GM in Sodium Chloride 0.9% 100 ML IV SCH ×3 (04:36→20:24)
[2021-08-11] MEDS: Ondansetron 4 MG/2 ML SDV IVPUSH PRN ×2 (07:13→13:51)
[2021-08-11] MEDS: HYDROmorphone 1 MG/ML Syringe IVPUSH PRN ×3 (07:24→20:25)
[2021-08-11] MEDS: Heparin Sodium 5,000 Units/ML Vial SUBCUT SCH ×2 (07:25→20:23)
[2021-08-11] MEDS: Potassium Chloride 20 MEQ Tab.ER PO SCH (07:25)
[2021-08-11] MEDS: Clopidogrel 75 MG Tab PO SCH (07:25)
[2021-08-11 07:26] LABS: ANION GAP 20.3 mmol/L (5-15)
[2021-08-11] MEDS ORDERED: Potassium Chloride Riders 20 MEQ in Premix Bag 1 BAG IV ONE (09:38)
--- NOTE | 2021-08-11 09:44 | PCM.PN ---
- General Info Date of Service: 08/11/21 Admission Dx/Problem (Free Text): Colitis Subjective Update: Patient is an 80-year-old female who was admitted on 08/09/2021 for abdominal pain, nausea, vomiting. She had told the provider at the time of admit that she had been having some severe diarrhea of about 3 weeks time. She is having upwards of 7+ bowel movements per day. Did have mild leukocytosis as well as an KAISER on admission. CT scan of the abdomen did show thickening and stranding demo nstrating a focal colitis. She was admitted and placed on IV fluids as well as potassium replacement and pain control. She was placed on Cipro and Flagyl for the colitis. Overnight she has remained clinically stable. She denies any fevers or chills. Does note feeling fatigues/tired. Vital signs are relatively normal except for mild tachycardia and her continued mild hypoxia requiring 2 L of O2. Her laboratory evaluation this morning is notable for a mild drop in her WBCs to 24.2. She still maintains bandemia. BUN and creatinine remain stable. Lactic acid is improved to 0.7. Potassium down slightly to 3.3. Anion gap continues to climb to 20.3 today. Blood cultures are back and do demonstrate E. coli bacteremia. - Review of Systems General: Reports: Weakness, Fatigue, Malaise HEENT: Reports: No Symptoms Pulmonary: Reports: No Symptoms Cardiovascular: Reports: No Symptoms Gastrointestinal: Reports: Abdominal Pain (improved slightly), Diarrhea Genitourinary: Reports: No Symptoms Neurological: Reports: No Symptoms Psychiatric: Reports: No Symptoms - Patient Data Vitals - Most Recent: Last Vital Signs Temp 97.7 F 08/11/21 05:55 Pulse 104 H 08/11/21 05:55 Resp 17 08/11/21 05:55 BP 128/62 08/11/21 05:55 Pulse Ox 94 L 08/11/21 05:55 Weight - Most Recent: 133 lb 4.8 oz I&O - Last 24 Hours: Intake & Output 08/10/21 08/11/21 08/11/21 22:59 06:59 14:59 Intake Total 2249 1961 Output Total 200 Balance 2049 1961 Lab Results Last 24 Hours: Laboratory Results - last 24 hr 08/11/21 08/11/21 08/11/21 Range/Units 06:40 06:40 06:40 WBC 24.2 H* (4.0-10.0) x10^3/uL RBC 4.75 (4.00-5.50) x10^6/uL Hgb 10.7 L (12.0-16.0) g/dL Hct 33.9 (33.0-47.0) % MCV 71.4 L (78.0-93.0) fL MCH 22.5 L (26.0-32.0) pg MCHC 31.6 L (32.0-36.0) g/dL RDW Coeff of Ruddy 19.3 H (10.0-15.0) % Plt Count 187 (130-400) x10^3/uL Add Manual Diff Yes Neutrophils % (Manual) 68 (50-80) % Band Neutrophils % 23 H (0-6) % Lymphocytes % (Manual) 4 L (25-50) % Monocytes % (Manual) 5 (2-11) % Absolute Neutrophils 22.0 H (1.8-7.7) x10^3/uL Lymphocytes # (Manual) 1.0 (1.0-4.8) x10^3/uL Monocytes # (Manual) 1.2 H (0.0-0.8) x10^3/uL Platelet Estimate Adequate Anisocytosis 2+ moderate H Ovalocytes 1+ slight H Sodium 145 (136-145) mmol/L Potassium 3.3 L (3.5-5.1) mmol/L Chloride 110 H (98-107) mmol/L Carbon Dioxide 18 L (21-32) mmol/L Anion Gap 20.3 H (5-15) mmol/L BUN 49 H (7-18) mg/dL Creatinine 2.3 H (0.55-1.02) mg/dL Est Cr Clr Drug Dosing 15.45 mL/min Estimated GFR (MDRD) 20 Glucose 81 (70-99) mg/dL Lactic Acid 0.7 (0.4-2.0) mmol/L Calcium 7.8 L (8.5-10.1) mg/dL [place] Results Last 24 Hours: Microbiology 08/09/21 00:26 Aerobic Blood Culture - Final Blood - Venous - Lab Draw Escherichia Coli Anaerobic Blood Culture - Final 08/09/21 00:20 Aerobic Blood Culture - Final Blood - Venous Escherichia Coli Anaerobic Blood Culture - Final Escherichia Coli 08/10/21 07:20 Urine Culture - Preliminary Urine, Voided MIXED [facility] DAY 1 Med Orders - Current: Current Medications Albuterol (Albuterol Hfa 18 Gm Inhaler) 0 gm INH Q4H PRN PRN Reason: WHEEXING OR SOB Clopidogrel Bisulfate (Clopidogrel 75 Mg Tab) 75 mg PO DAILY [facility] Last Admin: 08/11/21 07:25 Dose: 75 mg Documented by: Dicyclomine HCl (Dicyclomine 10 Mg Cap) 10 mg PO QIDACANDBED PRN PRN Reason: Pain Last Admin: 08/09/21 12:02 Dose: 10 mg Documented by: Heparin Sodium (Porcine) (Heparin Sodium 5,000 Units/Ml Vial) 5,000 units SUBCUT Q8H [facility] Last Admin: 08/11/21 07:25 Dose: 5,000 units Documented by: Hydromorphone HCl (Hydromorphone 1 Mg/Ml Syringe) 1 mg IVPUSH Q4H PRN PRN Reason: Pain Last Admin: 08/11/21 07:24 Dose: 1 mg Documented by: Sodium Chloride (Normal Saline) 1,000 mls @ 150 mls/hr IV ASDIRECTED [facility] Last Admin: 08/11/21 01:56 Dose: 125 mls/hr Documented by: Piperacillin Sod/Tazobactam (Sod 3.375 gm/ Sodium Chloride) 100 mls @ 25 mls/hr IV Q8H [facility] Last Admin: 08/11/21 04:36 Dose: 25 mls/hr Documented by: Vancomycin HCl 1 gm/ Sodium (Chloride) 250 mls @ 250 mls/hr IV Q48H [facility] Potassium Chloride 20 meq/ (Premix) 50 mls @ 50 mls/hr IV ONETIME ONE Stop: 08/11/21 10:37 Loperamide HCl (Loperamide 2 Mg Cap) 2 mg PO Q4H PRN PRN Reason: Diarrhea Ondansetron HCl (Ondansetron 4 Mg/2 Ml Sdv) 4 mg IVPUSH Q6H PRN PRN Reason: Nausea Last Admin: 08/11/21 07:13 Dose: 4 mg Documented by: Potassium Chloride (Potassium Chloride 20 Meq Tab.Er) 20 meq PO DAILY [facility] Last Admin: 08/11/21 07:25 Dose: 20 meq Documented by: Vancomycin HCl (Pharmacy To Dose - Vancomycin) 1 dose .XX ASDIRECTED [facility] Discontinued Medications Calcium Carbonate/Glycine (Calcium Carbonate 750 Mg Tab.Chew) 750 mg PO ONETIME ONE Stop: 08/10/21 10:19 Last Admin: 08/10/21 11:46 Dose: 750 mg Documented by: Dicyclomine HCl (Dicyclomine 20 Mg/2 Ml Sdv) 20 mg IM ONETIME ONE Stop: 08/09/21 01:59 Last Admin: 08/09/21 03:02 Dose: 20 mg Documented by: Fentanyl (Fentanyl 100 Mcg/2 Ml Sdv) 50 mcg IVPUSH ONETIME ONE Stop: 08/09/21 01:49 Last Admin: 08/09/21 02:00 Dose: 50 mcg Documented by: Fentanyl (Fentanyl 50 Mcg/Ml Sdv) 12.5 mcg IVPUSH Q2H PRN PRN Reason: Abdominal Pain Last Admin: 08/10/21 09:04 Dose: 12.5 mcg Documented by: Hydromorphone HCl (Hydromorphone 1 Mg/Ml Syringe) 1 mg IVPUSH ONETIME ONE Stop: 08/09/21 00:37 Last Admin: 08/09/21 00:41 Dose: 1 mg Documented by: Potassium Chloride/Sodium Chloride (Normal Saline With 40 Meq Kcl) 1,000 mls @ 125 mls/hr IV ASDIRECTED [facility] Ciprofloxacin/Dextrose 400 mg/ (Premix) 200 mls @ 200 mls/hr IV STAT ONE Stop: 08/09/21 02:18 Last Admin: 08/09/21 03:01 Dose: 200 mls/hr Documented by: Metronidazole 500 mg/ Premix 100 mls @ 100 mls/hr IV ONETIME ONE Stop: 08/09/21 02:19 Last Admin: 08/09/21 04:16 Dose: 100 mls/hr Documented by: Potassium Chloride/Sodium Chloride (Normal Saline With 40 Meq Kcl) 1,000 mls @ 200 mls/hr IV ASDIRECTED [facility] Last Infusion: 08/09/21 05:58 Dose: 100 mls/hr Documented by: Potassium Chloride 10 meq/ (Premix) 50 mls @ 50 mls/hr IV Q1H [facility] Stop: 08/09/21 16:59 Last Admin: 08/09/21 17:20 Dose: 50 mls/hr Documented by: Ciprofloxacin/Dextrose 400 mg/ (Premix) 200 mls @ 200 mls/hr IV Q12H [facility] Last Admin: 08/10/21 09:08 Dose: Not Given Documented by: Metronidazole 500 mg/ Premix 100 mls @ 100 mls/hr IV Q8H [facility] Last Admin: 08/10/21 03:44 Dose: 100 mls/hr Documented by: Vancomycin HCl 1.25 gm/ Premix 250 mls @ 200 mls/hr IV ONETIME ONE Stop: 08/10/21 17:14 Last Admin: 08/10/21 16:11 Dose: 200 mls/hr Documented by: Iopamidol (Iopamidol 612 Mg/Ml 100 Ml Bottle) 100 ml IVPUSH ONETIME ONE Stop: 08/08/21 23:44 Last Admin: 08/09/21 12:58 Dose: Not Given Documented by: Iopamidol (Iopamidol 755 Mg/Ml 100 Ml Bottle) 100 ml IVPUSH ONETIME ONE Stop: 08/09/21 03:25 Last Admin: 08/09/21 12:55 Dose: Not Given Documented by: Methylprednisolone Sodium Succinate (Methylprednisolone Sodium Succinate 125 Mg/2 Ml Sdv) 125 mg IVPUSH ONETIME ONE Stop: 08/09/21 03:42 Last Admin: 08/09/21 04:17 Dose: 125 mg Documented by: Metoclopramide HCl (Metoclopramide 10 Mg/2 Ml Sdv) 10 mg IVPUSH ONETIME ONE Stop: 08/09/21 00:37 Last Admin: 08/09/21 00:36 Dose: 10 mg Documented by: Morphine Sulfate (Morphine 2 Mg/Ml Syringe) 4 mg IVPUSH ONETIME ONE Stop: 08/08/21 23:49 Last Admin: 08/08/21 23:35 Dose: 4 mg Documented by: Morphine Sulfate (Morphine 2 Mg/Ml Syringe) 1 mg IVPUSH Q2H PRN PRN Reason: Pain Ondansetron HCl (Ondansetron 4 Mg/2 Ml Sdv) 4 mg IV ONETIME ONE Stop: 08/08/21 23:49 Last Admin: 08/08/21 23:37 Dose: 4 mg Documented by: Potassium Chloride (Potassium Chloride 10 Meq Tab.Er) 40 meq PO ONETIME ONE Stop: 08/10/21 10:18 Last Admin: 08/10/21 11:46 Dose: 40 meq Documented by: - Exam Quality Assessment: Supplemental Oxygen (2L) General: Alert, Mild Distress, Lethargic HEENT: EOMI, Mucous Membr. Moist/[place] Neck: Supple Lungs: Normal Respiratory Effort, Crackles (bilateral bases (atelectasis)?) Cardiovascular: Regular Rhythm, Tachycardia GI/Abdominal Exam: Normal Bowel Sounds, Soft, Tender (to moderate palpation (epigastric and across the lower abdomen), improved from yesterday) Extremities: Non-Tender, No Pedal Edema Skin: Warm, Dry Neurological: No New Focal Deficit Psy/Mental Status: Alert, Normal Affect, Normal Mood - Patient Data Lab Results Last 24 hrs: Laboratory Results - last 24 hr 08/11/21 08/11/21 08/11/21 Range/Units 06:40 06:40 06:40 WBC 24.2 H* (4.0-10.0) x10^3/uL RBC 4.75 (4.00-5.50) x10^6/uL Hgb 10.7 L (12.0-16.0) g/dL Hct 33.9 (33.0-47.0) % MCV 71.4 L (78.0-93.0) fL MCH 22.5 L (26.0-32.0) pg MCHC 31.6 L (32.0-36.0) g/dL RDW Coeff of Ruddy 19.3 H (10.0-15.0) % Plt Count 187 (130-400) x10^3/uL Add Manual Diff Yes Neutrophils % (Manual) 68 (50-80) % Band Neutrophils % 23 H (0-6) % Lymphocytes % (Manual) 4 L (25-50) % Monocytes % (Manual) 5 (2-11) % Absolute Neutrophils 22.0 H (1.8-7.7) x10^3/uL Lymphocytes # (Manual) 1.0 (1.0-4.8) x10^3/uL Monocytes # (Manual) 1.2 H (0.0-0.8) x10^3/uL Platelet Estimate Adequate Anisocytosis 2+ moderate H Ovalocytes 1+ slight H Sodium 145 (136-145) mmol/L Potassium 3.3 L (3.5-5.1) mmol/L Chloride 110 H (98-107) mmol/L Carbon Dioxide 18 L (21-32) mmol/L Anion Gap 20.3 H (5-15) mmol/L BUN 49 H (7-18) mg/dL Creatinine 2.3 H (0.55-1.02) mg/dL Est Cr Clr Drug Dosing 15.45 mL/min Estimated GFR (MDRD) 20 Glucose 81 (70-99) mg/dL Lactic Acid 0.7 (0.4-2.0) mmol/L Calcium 7.8 L (8.5-10.1) mg/dL Result Diagrams: 08/11/21 06:40 08/11/21 06:40 [place] Results Last 24 hrs: Microbiology 08/09/21 00:26 Aerobic Blood Culture - Final Blood - Venous - Lab Draw Escherichia Coli Anaerobic Blood Culture - Final 08/09/21 00:20 Aerobic Blood Culture - Final Blood - Venous Escherichia Coli Anaerobic Blood Culture - Final Escherichia Coli 08/10/21 07:20 Urine Culture - Preliminary Urine, Voided MIXED [facility] DAY 1 Sepsis Event Note - Evaluation Sepsis Screening Result: Severe Sepsis Risk - Focused Exam Vital Signs: Vital Signs Temp Pulse Resp BP Pulse Ox 08/11/21 05:55 97.7 F 104 H 17 128/62 94 L 08/11/21 02:00 97.8 F 102 H 20 128/65 94 L 08/10/21 22:00 98.1 F 97 20 123/56 L - Problem List & Annotations (1) E coli bacteremia SNOMED Code(s): 587845370185 Code(s): R78.81 - BACTEREMIA; B96.20 - UNSP ESCHERICHIA COLI THE CAUSE OF DISEASES CLASSD [id number] Status: Acute Current Visit: Yes (2) Colitis SNOMED Code(s): 89731403 Code(s): K52.9 - NONINFECTIVE GASTROENTERITIS AND COLITIS, UNSPECIFIED Status: Acute Current Visit: Yes Annotation/Comment:: -WBC=11.4, Bands elevated. Afebrile. Will continue the Cipro and Flagyl at this time. (3) Sepsis SNOMED Code(s): 54248068 Code(s): A41.9 - SEPSIS, UNSPECIFIED ORGANISM Status: Acute Current Visit: Yes (4) Hypokalemia SNOMED Code(s): 45785364 Code(s): E87.6 - HYPOKALEMIA Status: Acute Current Visit: Yes Annotation/Comment:: -K=2.1. Will replace Potassium with riders then repeat labs at 1800 tonight. Monitor vomiting and treat with Zofran as needed. (5) UTI (urinary tract infection) SNOMED Code(s): 81893419 Code(s): N39.0 - URINARY TRACT INFECTION, SITE NOT SPECIFIED Status: Acute Current Visit: Yes - Problem List Review Problem List Initiated/Reviewed/Updated: Yes - My Orders Last 24 Hours: My Active Orders 08/10/21 10:15 Dietary Supplements [RC] BIDMEALS 08/10/21 10:16 HYDROmorphone [Dilaudid] 1 mg IVPUSH Q4H PRN 08/10/21 10:17 Isolation [COMM] Stat 08/10/21 11:00 CLOSTRIDIUM DIFFICILE TOX RFLX [MREF] Routine 08/10/21 12:00 Piperacillin/Tazobactam [Zosyn] 3.375 gm Sodium Chloride 0.9% [Normal Saline] 100 ml IV Q8H 08/10/21 15:00 Albuterol [Ventolin HFA] 0 gm INH Q4H PRN 08/10/21 15:15 Clopidogrel [Plavix] 75 mg PO DAILY Pharmacy to Dose - Vancomycin 1 dose .XX ASDIRECTED 08/10/21 16:00 Heparin Sodium 5,000 units SUBCUT Q8H 08/10/21 Dinner Advance Diet Instructions [DIET] 08/11/21 08:00 Potassium Chloride [Klor-Con M20] 20 meq PO DAILY 08/11/21 09:32 Loperamide [Imodium] 2 mg PO Q4H PRN 08/11/21 09:33 Abdomen wo Cont [CT] Routine 08/11/21 09:34 STOOL CULTURE [MREF] Urgent 08/11/21 09:37 RT Incentive Spirometry [RC] Q2HWA 08/11/21 09:38 Potassium Chloride Riders [KCL in Water 20 MEQ/50 ML] 20 meq Premix Bag 1 bag IV ONETIME 08/12/21 16:00 Vancomycin 1 gm Sodium Chloride 0.9% [Normal Saline (AdvBag)] 250 ml IV Q48H 08/14/21 07:00 CBC W/O DIFF,HEMOGRAM [HEME] Q3D 08/14/21 15:30 VANCOMYCIN TROUGH [CHEM] Routine 08/17/21 07:00 CBC W/O DIFF,HEMOGRAM [HEME] Q3D 08/20/21 07:00 CBC W/O DIFF,HEMOGRAM [HEME] Q3D 08/23/21 07:00 CBC W/O DIFF,HEMOGRAM [HEME] Q3D 08/26/21 07:00 CBC W/O DIFF,HEMOGRAM [HEME] Q3D 08/29/21 07:00 CBC W/O DIFF,HEMOGRAM [HEME] Q3D - Plan Plan:: Angelic is an 80-year-old female who is hospital day 3 for evaluation/treatment of colitis. Colitis Sepsis E.coli Bacteremia -Patient with labs and CT findings of colitis on admit. Vital signs, leukocytosis, lactic acid indicating sepsis -Changed from Cipro/Flagyl to Vanc/Zosyn on 08/10/21 after initial worsening -Blood cultures now growing e.coli, sensitivities to follow -LA resolved Plan: -Continue Vanc/Zosyn -Continue Dilaudid 1 mg every 4 hours scheduled -Repeat CBC this PM and in the AM again -Given labs holding steady will repeat CT abdomen today -Awaiting Bld Cx sensitivities; will adjust antibiotic regiment as indicated -C. difficile testing pending -IVF increased to 150mL/hr -Given diarrhea does not have typical C.diff smell nor is there any blood will OK imodium prn -If patient clinically worsens or CT demonstrates bowel perf would call/transfer to [place] for specialist care. Hypoxia -Likely secondary to the above as patient does not want to breathe deep against a very tender abdomen -Stable Plan: -Continue supplemental oxygen as needed -IS ordered -Consideration given for CTA of the chest if not improving (cautious though as we have other cause for this and patient does have KAISER) UTI -Urinalysis with signs of mild UTI -Patient should be covered with the above antibiotic regiment Plan: -Continue antibiotics as above KAISER -Baseline creatinine 1.4-1.5 -Cr 2.3 this am Plan: -Increase IV fluids at 150 mils per hour -Repeat BMP this PM and in the morning Hypokalemia -Mild depression this am Plan: -Vitamin K replaced today -Repeat BMP this PM and again in the morning Hypocalcemia -Calcium level mildly low today Plan: -Calcium replaced today -Repeat BMP later today Chronic: -Hypertension: Blood pressure controlled/mildly low. We are holding her home hydrochlorothiazide at this time -Peripheral artery disease: We will restart patient's Plavix -Hyperlipidemia: Holding patient's home Crestor at this time -GERD: Holding patient's home omeprazole at this time DVT: Heparin SQ Diet: Advance as tolerated IVF: NS CODE: DNR/DNI Disposition: Guarded. continue antibiotics, increase fluids, repeat CT scan. Low threshold for transfer if worsening clinical condition.
[2021-08-11] MEDS: Loperamide 2 MG Cap PO PRN ×2 (09:50→13:51)
[2021-08-11] MEDS: Calcium Carbonate 750 MG Tab.Chew PO SCH ×2 (09:59→20:24)
--- NOTE | 2021-08-11 13:21 | CT ---
[id number] CT/CT Abdomen Pelvis WO IV EXAM: CT Abdomen Pelvis WO IV CLINICAL DATA: COLITIS. COMPARISON STUDY: August 08, 2021. FINDINGS: Correlation is made to study from 2 days prior. However, findings are within limitation of no contrast material. Small amount of pericolonic free fluid at the splenic flexure. This has slightly increased. No drainable collection identified. Ascending and transverse segments of the colon demonstrate dilation and air-fluid levels not seen previously. Findings are possibly sequela of colitis. No evidence of viscus perforation at this time. No small bowel obstruction or inflammation. Interval development of small bilateral pleural effusions and fairly extensive atelectasis in both lung bases compared to the prior examination. No change in appearance of aneurysm No change in appearance of abdominal aortic aneurysm compared to prior examination. No evidence of aneurysm rupture on this examination. IMPRESSION: Slightly increased pericolonic reactive change in the splenic flexure compared to the prior examination. Interval development of dilation and air-fluid levels in the ascending and transverse segments of the colon. This would be consistent with changes of colitis in the appropriate clinical setting. No evidence of viscus perforation or other acute findings in the abdomen or pelvis. Interval development of small bilateral pleural effusions and fairly extensive atelectasis in the lung bases. Alek Alfaro MD 08/11/21 [id number] Thank you for allowing us to participate in the care of your patient.
[2021-08-11] MEDS: Sodium Chloride 0.9% 10 ML Syringe FLUSH PRN (13:58)
[2021-08-11 15:58] LABS: ANION GAP 19.5 mmol/L (5-15)
[2021-08-12] MEDS: Piperacillin/Tazobactam 3.375 GM in Sodium Chloride 0.9% 100 ML IV SCH (04:18)
[2021-08-12] MEDS: Sodium Chloride 0.9% 1,000 ML IV SCH (05:42)
[2021-08-12 07:31] LABS: ANION GAP 19.5 mmol/L (5-15)
[2021-08-12] MEDS: Ondansetron 4 MG/2 ML SDV IVPUSH PRN (07:43)
[2021-08-12] MEDS: Loperamide 2 MG Cap PO PRN (07:43)
[2021-08-12] MEDS: Calcium Carbonate 750 MG Tab.Chew PO SCH (07:44)
[2021-08-12] MEDS: Clopidogrel 75 MG Tab PO SCH (07:44)
[2021-08-12] MEDS: Heparin Sodium 5,000 Units/ML Vial SUBCUT SCH (07:44)
[2021-08-12] MEDS: Potassium Chloride 20 MEQ Tab.ER PO SCH (07:44)
[2021-08-12] MEDS ORDERED: cefTRIAXone 1 GM Vial IVPUSH SCH (08:30)
--- NOTE | 2021-08-12 08:35 | PCM.PN ---
- General Info Date of Service: 08/12/21 Admission Dx/Problem (Free Text): Colitis Subjective Update: Patient is an 80-year-old female who was admitted on 08/09/2021 for abdominal pain, nausea, vomiting. She had told the provider at the time of admit that she had been having some severe diarrhea of about 3 weeks time. She is having upwards of 7+ bowel movements per day. Did have mild leukocytosis as well as an [facility] on admission. CT scan of the abdomen did show thickening and stranding demo nstrating a focal colitis. She was admitted and placed on IV fluids as well as potassium replacement and pain control. She was placed on Cipro and Flagyl for the colitis. Overnight she has remained clinically stable. No fevers. Still very tired appearing. Requiring 2L of O2, stable since admit. Bowels have slowed a bit. Leukocytosis with slight improvement from yesterday. - Review of Systems General: Reports: Weakness, Fatigue HEENT: Reports: No Symptoms Pulmonary: Reports: Shortness of Breath Cardiovascular: Reports: No Symptoms Gastrointestinal: Reports: Abdominal Pain, Diarrhea Genitourinary: Reports: No Symptoms Skin: Reports: No Symptoms Neurological: Reports: No Symptoms Psychiatric: Reports: No Symptoms - Patient Data Vitals - Most Recent: Last Vital Signs Temp 98.2 F 08/12/21 06:00 Pulse 110 H 08/12/21 06:00 Resp 21 H 08/12/21 06:00 BP 123/66 08/12/21 06:00 Pulse Ox 95 08/12/21 06:00 Weight - Most Recent: 133 lb 4.8 oz I&O - Last 24 Hours: Intake & Output 08/11/21 08/12/21 08/12/21 22:59 06:59 14:59 Intake Total 450 2072 Output Total 600 Balance -150 2072 Lab Results Last 24 Hours: Laboratory Results - last 24 hr 08/11/21 08/11/21 08/12/21 Range/Units 15:18 15:18 06:34 WBC 21.0 H* 20.5 H* (4.0-10.0) x10^3/uL RBC 4.67 4.64 (4.00-5.50) x10^6/uL Hgb 10.5 L 10.4 L (12.0-16.0) g/dL Hct 33.3 33.9 (33.0-47.0) % MCV 71.3 L 73.1 L (78.0-93.0) fL MCH 22.5 L 22.4 L (26.0-32.0) pg MCHC 31.5 L 30.7 L (32.0-36.0) g/dL RDW Coeff of Ruddy 19.6 H 20.0 H (10.0-15.0) % Plt Count 162 165 (130-400) x10^3/uL Add Manual Diff Yes Yes Neutrophils % (Manual) 78 85 H (50-80) % Band Neutrophils % 12 H 11 H (0-6) % Lymphocytes % (Manual) 7 L 1 L (25-50) % Monocytes % (Manual) 3 2 (2-11) % Metamyelocytes % 1 H (0) % Immature Gran # 0.21 H (0.00-0.07) X10^3/Ul Absolute Neutrophils 18.9 H 19.7 H (1.8-7.7) x10^3/uL Lymphocytes # (Manual) 1.5 0.2 L (1.0-4.8) x10^3/uL Monocytes # (Manual) 0.6 0.4 (0.0-0.8) x10^3/uL Platelet Estimate Adequate Adequate Anisocytosis 2+ moderate H 3+ marked H Spherocytes 1+ slight H Sodium 145 (136-145) mmol/L Potassium 3.5 (3.5-5.1) mmol/L Chloride 111 H (98-107) mmol/L Carbon Dioxide 18 L (21-32) mmol/L Anion Gap 19.5 H (5-15) mmol/L BUN 54 H (7-18) mg/dL Creatinine 2.5 H (0.55-1.02) mg/dL Est Cr Clr Drug Dosing 14.21 mL/min Estimated GFR (MDRD) 18 Glucose 94 (70-99) mg/dL Calcium 7.8 L (8.5-10.1) mg/dL Corrected Calcium (8.5-10.1) mg/dL Total Bilirubin (0.2-1.0) mg/dL AST (15-37) U/L ALT (14-59) U/L Alkaline Phosphatase (46-116) U/L Total Protein (6.4-8.2) g/dL Albumin (3.4-5.0) g/dL Globulin Albumin/Globulin Ratio 08/12/ Range/Units 06:34 WBC (4.0-10.0) x10^3/uL RBC (4.00-5.50) x10^6/uL Hgb (12.0-16.0) g/dL Hct (33.0-47.0) % MCV (78.0-93.0) fL MCH (26.0-32.0) pg MCHC (32.0-36.0) g/dL RDW Coeff of Ruddy (10.0-15.0) % Plt Count (130-400) x10^3/uL Add Manual Diff Neutrophils % (Manual) (50-80) % Band Neutrophils % (0-6) % Lymphocytes % (Manual) (25-50) % Monocytes % (Manual) (2-11) % Metamyelocytes % (0) % Immature Gran # (0.00-0.07) X10^3/Ul Absolute Neutrophils (1.8-7.7) x10^3/uL Lymphocytes # (Manual) (1.0-4.8) x10^3/uL Monocytes # (Manual) (0.0-0.8) x10^3/uL Platelet Estimate Anisocytosis Spherocytes Sodium 145 (136-145) mmol/L Potassium 3.5 (3.5-5.1) mmol/L Chloride 112 H (98-107) mmol/L Carbon Dioxide 17 L (21-32) mmol/L Anion Gap 19.5 H (5-15) mmol/L BUN 56 H (7-18) mg/dL Creatinine 3.0 H (0.55-1.02) mg/dL Est Cr Clr Drug Dosing 11.85 mL/min Estimated GFR (MDRD) 15 Glucose 158 H (70-99) mg/dL Calcium 7.9 L (8.5-10.1) mg/dL Corrected Calcium 9.4 (8.5-10.1) mg/dL Total Bilirubin 0.2 (0.2-1.0) mg/dL AST 49 H (15-37) U/L ALT 22 (14-59) U/L Alkaline Phosphatase 70 (46-116) U/L Total Protein 4.8 L (6.4-8.2) g/dL Albumin 2.1 L (3.4-5.0) g/dL Globulin 2.7 Albumin/Globulin Ratio 0.78 [place] Results Last 24 Hours: Microbiology 08/10/21 07:20 Urine Culture - Final Urine, Voided MIXED SALV[place]ORE DAY 2 08/10/21 11:00 Clostridioides difficile (PCR) - Final Stool / Feces 08/09/21 00:26 Aerobic Blood Culture - Final Blood - Venous - Lab Draw Escherichia Coli Anaerobic Blood Culture - Final 08/09/21 00:20 Aerobic Blood Culture - Final Blood - Venous Escherichia Coli Anaerobic Blood Culture - Final Escherichia Coli Med Orders - Current: Current Medications Albuterol (Albuterol Hfa 18 Gm Inhaler) 0 gm INH Q4H PRN PRN Reason: WHEEXING OR SOB Calcium Carbonate/Glycine (Calcium Carbonate 750 Mg Tab.Chew) 750 mg PO BID [facility] Last Admin: 08/12/21 07:44 Dose: 750 mg Documented by: Ceftriaxone Sodium (Ceftriaxone 1 Gm Vial) 1 gm IVPUSH DAILY [facility] Clopidogrel Bisulfate (Clopidogrel 75 Mg Tab) 75 mg PO DAILY [facility] Last Admin: 08/12/21 07:44 Dose: 75 mg Documented by: Dicyclomine HCl (Dicyclomine 10 Mg Cap) 10 mg PO QIDACANDBED PRN PRN Reason: Pain Last Admin: 08/09/21 12:02 Dose: 10 mg Documented by: Heparin Sodium (Porcine) (Heparin Sodium 5,000 Units/Ml Vial) 5,000 units SUBCUT Q12H [facility] Last Admin: 08/12/21 07:44 Dose: 5,000 units Documented by: Hydromorphone HCl (Hydromorphone 1 Mg/Ml Syringe) 1 mg IVPUSH Q4H PRN PRN Reason: Pain Last Admin: 08/11/21 20:25 Dose: 1 mg Documented by: Sodium Chloride (Normal Saline) 1,000 mls @ 75 mls/hr IV ASDIRECTED [facility] Last Admin: 08/12/21 05:42 Dose: 125 mls/hr Documented by: Loperamide HCl (Loperamide 2 Mg Cap) 2 mg PO Q4H PRN PRN Reason: Diarrhea Last Admin: 08/12/21 07:43 Dose: 2 mg Documented by: Ondansetron HCl (Ondansetron 4 Mg/2 Ml Sdv) 4 mg IVPUSH Q6H PRN PRN Reason: Nausea Last Admin: 08/12/21 07:43 Dose: 4 mg Documented by: Potassium Chloride (Potassium Chloride 20 Meq Tab.Er) 20 meq PO DAILY [facility] Last Admin: 08/12/21 07:44 Dose: 20 meq Documented by: Sodium Chloride (Sodium Chloride 0.9% 10 Ml Syringe) 10 ml FLUSH ASDIRECTED PRN PRN Reason: FLUSH Last Admin: 08/11/21 13:58 Dose: 10 ml Documented by: Vancomycin HCl (Pharmacy To Dose - Vancomycin) 1 dose .XX ASDIRECTED [facility] Discontinued Medications Calcium Carbonate/Glycine (Calcium Carbonate 750 Mg Tab.Chew) 750 mg PO ONETIME ONE Stop: 08/10/21 10:19 Last Admin: 08/10/21 11:46 Dose: 750 mg Documented by: Dicyclomine HCl (Dicyclomine 20 Mg/2 Ml Sdv) 20 mg IM ONETIME ONE Stop: 08/09/21 01:59 Last Admin: 08/09/21 03:02 Dose: 20 mg Documented by: Fentanyl (Fentanyl 100 Mcg/2 Ml Sdv) 50 mcg IVPUSH ONETIME ONE Stop: 08/09/21 01:49 Last Admin: 08/09/21 02:00 Dose: 50 mcg Documented by: Fentanyl (Fentanyl 50 Mcg/Ml Sdv) 12.5 mcg IVPUSH Q2H PRN PRN Reason: Abdominal Pain Last Admin: 08/10/21 09:04 Dose: 12.5 mcg Documented by: Heparin Sodium (Porcine) (Heparin Sodium 5,000 Units/Ml Vial) 5,000 units SUBCUT Q8H [facility] Last Admin: 08/11/21 07:25 Dose: 5,000 units Documented by: Hydromorphone HCl (Hydromorphone 1 Mg/Ml Syringe) 1 mg IVPUSH ONETIME ONE Stop: 08/09/21 00:37 Last Admin: 08/09/21 00:41 Dose: 1 mg Documented by: Potassium Chloride/Sodium Chloride (Normal Saline With 40 Meq Kcl) 1,000 mls @ 125 mls/hr IV ASDIRECTED [facility] Ciprofloxacin/Dextrose 400 mg/ (Premix) 200 mls @ 200 mls/hr IV STAT ONE Stop: 08/09/21 02:18 Last Admin: 08/09/21 03:01 Dose: 200 mls/hr Documented by: Metronidazole 500 mg/ Premix 100 mls @ 100 mls/hr IV ONETIME ONE Stop: 08/09/21 02:19 Last Admin: 08/09/21 04:16 Dose: 100 mls/hr Documented by: Potassium Chloride/Sodium Chloride (Normal Saline With 40 Meq Kcl) 1,000 mls @ 200 mls/hr IV ASDIRECTED [facility] Last Infusion: 08/09/21 05:58 Dose: 100 mls/hr Documented by: Potassium Chloride 10 meq/ (Premix) 50 mls @ 50 mls/hr IV Q1H [facility] Stop: 08/09/21 16:59 Last Admin: 08/09/21 17:20 Dose: 50 mls/hr Documented by: Ciprofloxacin/Dextrose 400 mg/ (Premix) 200 mls @ 200 mls/hr IV Q12H [facility] Last Admin: 08/10/21 09:08 Dose: Not Given Documented by: Metronidazole 500 mg/ Premix 100 mls @ 100 mls/hr IV Q8H [facility] Last Admin: 08/10/21 03:44 Dose: 100 mls/hr Documented by: Piperacillin Sod/Tazobactam (Sod 3.375 gm/ Sodium Chloride) 100 mls @ 25 mls/hr IV Q8H [facility] Last Admin: 08/12/21 04:18 Dose: 25 mls/hr Documented by: Vancomycin HCl 1.25 gm/ Premix 250 mls @ 200 mls/hr IV ONETIME ONE Stop: 08/10/21 17:14 Last Admin: 08/10/21 16:11 Dose: 200 mls/hr Documented by: Vancomycin HCl 1 gm/ Sodium (Chloride) 250 mls @ 250 mls/hr IV Q48H [facility] Potassium Chloride 20 meq/ (Premix) 50 mls @ 25 mls/hr IV ONETIME ONE Stop: 08/11/21 11:37 Last Admin: 08/11/21 09:48 Dose: 25 mls/hr Documented by: Iopamidol (Iopamidol 612 Mg/Ml 100 Ml Bottle) 100 ml IVPUSH ONETIME ONE Stop: 08/08/21 23:44 Last Admin: 08/09/21 12:58 Dose: Not Given Documented by: Iopamidol (Iopamidol 755 Mg/Ml 100 Ml Bottle) 100 ml IVPUSH ONETIME ONE Stop: 08/09/21 03:25 Last Admin: 08/09/21 12:55 Dose: Not Given Documented by: Methylprednisolone Sodium Succinate (Methylprednisolone Sodium Succinate 125 Mg/2 Ml Sdv) 125 mg IVPUSH ONETIME ONE Stop: 08/09/21 03:42 Last Admin: 08/09/21 04:17 Dose: 125 mg Documented by: Metoclopramide HCl (Metoclopramide 10 Mg/2 Ml Sdv) 10 mg IVPUSH ONETIME ONE Stop: 08/09/21 00:37 Last Admin: 08/09/21 00:36 Dose: 10 mg Documented by: Morphine Sulfate (Morphine 2 Mg/Ml Syringe) 4 mg IVPUSH ONETIME ONE Stop: 08/08/21 23:49 Last Admin: 08/08/21 23:35 Dose: 4 mg Documented by: Morphine Sulfate (Morphine 2 Mg/Ml Syringe) 1 mg IVPUSH Q2H PRN PRN Reason: Pain Ondansetron HCl (Ondansetron 4 Mg/2 Ml Sdv) 4 mg IV ONETIME ONE Stop: 08/08/21 23:49 Last Admin: 08/08/21 23:37 Dose: 4 mg Documented by: Potassium Chloride (Potassium Chloride 10 Meq Tab.Er) 40 meq PO ONETIME ONE Stop: 08/10/21 10:18 Last Admin: 08/10/21 11:46 Dose: 40 meq Documented by: - Exam Quality Assessment: Supplemental Oxygen (2L with sats in the mid-90s) General: Alert, Oriented, Moderate Distress HEENT: Mucous Membr. Moist/[place] Neck: Supple Lungs: Crackles (bilateral bases) Cardiovascular: Regular Rhythm, Tachycardia GI/Abdominal Exam: Normal Bowel Sounds, Soft, Tender (generalized with moderate pressure) Extremities: Non-Tender, No Pedal Edema Skin: Warm, Dry Neurological: No New Focal Deficit Psy/Mental Status: Alert - Patient Data Lab Results Last 24 hrs: Laboratory Results - last 24 hr 08/11/21 08/11/21 08/12/21 Range/Units 15:18 15:18 06:34 WBC 21.0 H* 20.5 H* (4.0-10.0) x10^3/uL RBC 4.67 4.64 (4.00-5.50) x10^6/uL Hgb 10.5 L 10.4 L (12.0-16.0) g/dL Hct 33.3 33.9 (33.0-47.0) % MCV 71.3 L 73.1 L (78.0-93.0) fL MCH 22.5 L 22.4 L (26.0-32.0) pg MCHC 31.5 L 30.7 L (32.0-36.0) g/dL RDW Coeff of Ruddy 19.6 H 20.0 H (10.0-15.0) % Plt Count 162 165 (130-400) x10^3/uL Add Manual Diff Yes Yes Neutrophils % (Manual) 78 85 H (50-80) % Band Neutrophils % 12 H 11 H (0-6) % Lymphocytes % (Manual) 7 L 1 L (25-50) % Monocytes % (Manual) 3 2 (2-11) % Metamyelocytes % 1 H (0) % Immature Gran # 0.21 H (0.00-0.07) X10^3/Ul Absolute Neutrophils 18.9 H 19.7 H (1.8-7.7) x10^3/uL Lymphocytes # (Manual) 1.5 0.2 L (1.0-4.8) x10^3/uL Monocytes # (Manual) 0.6 0.4 (0.0-0.8) x10^3/uL Platelet Estimate Adequate Adequate Anisocytosis 2+ moderate H 3+ marked H Spherocytes 1+ slight H Sodium 145 (136-145) mmol/L Potassium 3.5 (3.5-5.1) mmol/L Chloride 111 H (98-107) mmol/L Carbon Dioxide 18 L (21-32) mmol/L Anion Gap 19.5 H (5-15) mmol/L BUN 54 H (7-18) mg/dL Creatinine 2.5 H (0.55-1.02) mg/dL Est Cr Clr Drug Dosing 14.21 mL/min Estimated GFR (MDRD) 18 Glucose 94 (70-99) mg/dL Calcium 7.8 L (8.5-10.1) mg/dL Corrected Calcium (8.5-10.1) mg/dL Total Bilirubin (0.2-1.0) mg/dL AST (15-37) U/L ALT (14-59) U/L Alkaline Phosphatase (46-116) U/L Total Protein (6.4-8.2) g/dL Albumin (3.4-5.0) g/dL Globulin Albumin/Globulin Ratio // Range/Units 06:34 WBC (4.0-10.0) x10^3/uL RBC (4.00-5.50) x10^6/uL Hgb (12.0-16.0) g/dL Hct (33.0-47.0) % MCV (78.0-93.0) fL MCH (26.0-32.0) pg MCHC (32.0-36.0) g/dL RDW Coeff of Ruddy (10.0-15.0) % Plt Count (130-400) x10^3/uL Add Manual Diff Neutrophils % (Manual) (50-80) % Band Neutrophils % (0-6) % Lymphocytes % (Manual) (25-50) % Monocytes % (Manual) (2-11) % Metamyelocytes % (0) % Immature Gran # (0.00-0.07) X10^3/Ul Absolute Neutrophils (1.8-7.7) x10^3/uL Lymphocytes # (Manual) (1.0-4.8) x10^3/uL Monocytes # (Manual) (0.0-0.8) x10^3/uL Platelet Estimate Anisocytosis Spherocytes Sodium 145 (136-145) mmol/L Potassium 3.5 (3.5-5.1) mmol/L Chloride 112 H (98-107) mmol/L Carbon Dioxide 17 L (21-32) mmol/L Anion Gap 19.5 H (5-15) mmol/L BUN 56 H (7-18) mg/dL Creatinine 3.0 H (0.55-1.02) mg/dL Est Cr Clr Drug Dosing 11.85 mL/min Estimated GFR (MDRD) 15 Glucose 158 H (70-99) mg/dL Calcium 7.9 L (8.5-10.1) mg/dL Corrected Calcium 9.4 (8.5-10.1) mg/dL Total Bilirubin 0.2 (0.2-1.0) mg/dL AST 49 H (15-37) U/L ALT 22 (14-59) U/L Alkaline Phosphatase 70 (46-116) U/L Total Protein 4.8 L (6.4-8.2) g/dL Albumin 2.1 L (3.4-5.0) g/dL Globulin 2.7 Albumin/Globulin Ratio 0.78 Result Diagrams: 08/12/21 06:34 08/12/21 06:34 [place] Results Last 24 hrs: Microbiology 08/10/21 07:20 Urine Culture - Final Urine, Voided MIXED [place] DAY 2 08/10/21 11:00 Clostridioides difficile (PCR) - Final Stool / Feces 08/09/21 00:26 Aerobic Blood Culture - Final Blood - Venous - Lab Draw Escherichia Coli Anaerobic Blood Culture - Final 08/09/21 00:20 Aerobic Blood Culture - Final Blood - Venous Escherichia Coli Anaerobic Blood Culture - Final Escherichia Coli Sepsis Event Note - Evaluation Sepsis Screening Result: Severe Sepsis Risk - Focused Exam Vital Signs: Vital Signs Temp Pulse Resp BP Pulse Ox 08/12/21 06:00 98.2 F 110 H 21 H 123/66 95 08/12/21 02:00 98.4 F 103 H 16 135/59 L 97 08/11/21 22:00 97.4 F 101 H 22 H 140/63 94 L - Problem List & Annotations (1) E coli bacteremia SNOMED Code(s): 398187578032 Code(s): R78.81 - BACTEREMIA; B96.20 - UNSP ESCHERICHIA COLI THE CAUSE OF DISEASES CLASSD [id number] Status: Acute Current Visit: Yes (2) Colitis SNOMED Code(s): 99312235 Code(s): K52.9 - NONINFECTIVE GASTROENTERITIS AND COLITIS, UNSPECIFIED Status: Acute Current Visit: Yes Annotation/Comment:: -WBC=11.4, Bands elevated. Afebrile. Will continue the Cipro and Flagyl at this time. (3) Sepsis SNOMED Code(s): 11914957 Code(s): A41.9 - SEPSIS, UNSPECIFIED ORGANISM Status: Acute Current Visit: Yes (4) Hypokalemia SNOMED Code(s): 82736340 Code(s): E87.6 - HYPOKALEMIA Status: Resolved Current Visit: Yes Annotation/Comment:: -K=2.1. Will replace Potassium with riders then repeat labs at 1800 tonight. Monitor vomiting and treat with Zofran as needed. (5) UTI (urinary tract infection) SNOMED Code(s): 17157683 Code(s): N39.0 - URINARY TRACT INFECTION, SITE NOT SPECIFIED Status: Acute Current Visit: Yes - Problem List Review Problem List Initiated/Reviewed/Updated: Yes - My Orders Last 24 Hours: My Active Orders 08/11/21 08:00 Potassium Chloride [Klor-Con M20] 20 meq PO DAILY 08/11/21 09:32 Loperamide [Imodium] 2 mg PO Q4H PRN 08/11/21 09:34 STOOL CULTURE [MREF] Urgent 08/11/21 09:37 RT Incentive Spirometry [RC] Q2HWA 08/11/21 09:52 Calcium Carbonate [Tums Extra Strength] 750 mg PO BID 08/11/21 13:51 Sodium Chloride 0.9% [Saline Flush] 10 ml FLUSH ASDIRECTED PRN 08/11/21 20:00 Heparin Sodium 5,000 units SUBCUT Q12H 08/12/21 08:16 Dietary Supplements [RC] BIDMEALS 08/12/21 08:30 cefTRIAXone [Rocephin] 1 gm IVPUSH DAILY 08/14/21 07:00 CBC W/O DIFF,HEMOGRAM [HEME] Q3D 08/14/21 15:30 VANCOMYCIN TROUGH [CHEM] Routine 08/17/21 07:00 CBC W/O DIFF,HEMOGRAM [HEME] Q3D 08/20/21 07:00 CBC W/O DIFF,HEMOGRAM [HEME] Q3D 08/23/21 07:00 CBC W/O DIFF,HEMOGRAM [HEME] Q3D 08/26/21 07:00 CBC W/O DIFF,HEMOGRAM [HEME] Q3D 08/29/21 07:00 CBC W/O DIFF,HEMOGRAM [HEME] Q3D - Plan Plan:: Angelic is an 80-year-old female who is hospital day 4 for evaluation/treatment of colitis. Colitis Sepsis E.coli Bacteremia -Patient with labs and CT findings of colitis on admit. Vital signs, leukocytosis, lactic acid indicating sepsis -Changed from Cipro/Flagyl to Vanc/Zosyn on 08/10/21 after initial worsening -Repeat CT on 08/11 with slight worsening of colitis, no perforation/free fluid. Some bilateral basal atelectasis on the lungs -E.coli bacteremia, sensitivities back -LA resolved -C.dif negative Plan: -Switching to Rocephin given sensitivities -Continue Dilaudid 1 mg every 4 hours prn -Tylenol scheduled TID -Repeat CBC in the am -Stopped IVF -Imodium prn -If patient clinically worsens call/transfer to [facility] for specialist care; did already discuss case with Dr. Burrows. Hypoxia -Likely secondary to the above as patient does not want to breathe deep against a very tender abdomen -Stable Plan: -Continue supplemental oxygen as needed -Continuous monitoring -IS ordered/encouraged -Expect some fluid on the bilateral lung bases given amount of IVF the last few days, CXR today UTI -Urinalysis with signs of mild UTI -Patient should be covered with the above antibiotic regiment Plan: -Continue antibiotics as above [facility] -Baseline creatinine 1.4-1.5 -Cr 3.0 this am Plan: -Repeat BMP in the am Hypokalemia - resolved Plan: -Repeat BMP this PM and again in the morning Hypocalcemia -Calcium level mildly low today Plan: -Calcium replaced today -Repeat BMP tomorrow Chronic: -Hypertension: Blood pressure controlled/mildly low. We are holding her home hydrochlorothiazide at this time -Peripheral artery disease: We will restart patient's Plavix -Hyperlipidemia: Holding patient's home Crestor at this time -GERD: Holding patient's home omeprazole at this time DVT: Heparin SQ Diet: Advance as tolerated IVF: off CODE: DNR/DNI Disposition: Guarded. continue antibiotics for now and continue to monitor clinical picture. CXR today. Low threshold for transfer if worsening clinical condition.
[2021-08-12] MEDS: Sodium Chloride 0.9% 10 ML Syringe FLUSH PRN (08:42)
--- NOTE | 2021-08-12 09:22 | CR ---
[id number] RAD/RAD Chest PA or AP 1V EXAM: SINGLE VIEW CHEST. INDICATION: SHORTNESS OF BREATH COMPARISON: CORRELATION IS MADE WITH AUGUST 09, 2021 FINDINGS: There is mild edema There is elevation of the right hemidiaphragm There is a small right pleural effusion The cardiac silhouette is stable There are surgical changes of the right shoulder IMPRESSION: MILD CONGESTIVE HEART FAILURE Brennen Zuniga MD 08/12/21 [id number] Thank you for allowing us to participate in the care of your patient.
[2021-08-12] MEDS ORDERED: Acetaminophen 325 MG Tab PO SCH (12:00)
--- NOTE | 2021-08-12 12:21 | PCM.DCSUM1 ---
Discharge Summary - Hospital Course Free Text/Narrative:: Patient is an 80-year-old female with a PMH of who was admitted on 08/09/2021 for abdominal pain, nausea, vomiting. She had told the provider at the time of admit that she had been having some severe diarrhea of about 3 weeks time; upwards of 7+ bowel movements per day. Did have mild leukocytosis as well as an KAISER on admission. CT scan of the abdomen did show thickening and stranding demonstrating a focal colitis. She was admitted and placed on IV fluids as well as potassium replacement and pain control. She was placed on Cipro and Flagyl for the colitis. By day 2 of hospitalization (08/10/21) it was noted that her WBC had spiked up to 26. She continued to be afebrile and slightly tachycardic. She continued to require some oxygen (likely secondary to shallow/rapid breathing against an acutely tender abdomen). Abdomen fairly tender to light palpation, normal bowel sounds. Blood cultures demonstrated a gram-negative bacteremia. Urine was able to be collected and was positive for a likely UTI. Decision was made with her worsening labs to switch her from Cipro plus Flagyl to Vanco plus Zosyn. Pain medication was adjusted to Dilaudid. Renal function was stable with a creatinine of 2.0, BUN of 43. On day 3 of hospitalization (08/11/2021) patient continued to look very stable/steady. Vital signs continued with a mild hypoxia requiring 2 L of oxygen and mild tachycardia in the low 100s. Mild improvement in her leukocytosis with a WBC of 24.2 with a band predominance. Potassium continued to be slightly low at 3.3 and was repleted. Kidney function with a creatinine of 2.3, BUN of 49. Lactic acid was negative (LA resolved). Her abdominal exam was slightly improved from the previous day although she was still fairly tender to moderate palpation. C.diff was negative. Repeat CT scan showed some slight worsening/spread of the focal colitis; spreading from the splenic flexure to the transverse as well as the proximal descending colon. With the slight bit of clinical improvement decision was made to keep her in [place] for continued IV antibiotics and monitoring. On day 4 of hospitalization (08/12/2021) patient continued to have similar looking vital signs. Her blood cell counts continue to be greater than 20 with a band predominance. Of more concern is her worsening renal function with the adequate IV hydration. Creatinine is up to 3.0 this morning and BUN is 56. Lactic acid came back normal at 0.7, ESR of 18 which is within normal limits for our lab, CRP is double the upper limit of normal at 23.8. Abdominal exam did show increased tenderness from yesterday. Sensitivities are back on the blood cultures and it looks like this E. coli should be sensitive to everything that she has been given; decision was made at this time to discontinue the Vanco as well well as the Zosyn and switch her to Rocephin as the CARLOS is better (also some concern for antibiotic induced renal injury?). CXR performed with some mild fluid overload. After further consideration of the patient's case at this time it was felt best to call for consultation with [place]. I do have some concerns about a surgical abdomen and the fact that this may not be just a simple colitis given that her response to the treatment has been subpar thus far. I am also worried about her worsening renal function in the presence of adequate hydration. Spoke with Dr. Bernard who is willing to accept the patient for transfer to [place] for specialist care including gastroenterology, nephrology, surgical consult. Diagnosis: Stroke: No - Discharge Data Discharge Date: 08/12/21 Discharge Disposition: DC/Tfer to Acute Hospital 02 Condition: Poor - Referral to Home Health Primary Care Physician: PCP None - Discharge Diagnosis/Problem(s) (1) E coli bacteremia SNOMED Code(s): 612464905472 ICD Code: R78.81 - BACTEREMIA; B96.20 - UNSP ESCHERICHIA COLI THE CAUSE OF DISEASES CLASSD ELSR Status: Acute Current Visit: Yes (2) Colitis SNOMED Code(s): 46114128 ICD Code: K52.9 - NONINFECTIVE GASTROENTERITIS AND COLITIS, UNSPECIFIED Status: Acute Current Visit: Yes Problem Details: -WBC=11.4, Bands elevated. Afebrile. Will continue the Cipro and Flagyl at this time. (3) Sepsis SNOMED Code(s): 67214528 ICD Code: A41.9 - SEPSIS, UNSPECIFIED ORGANISM Status: Acute Current Visit: Yes (4) Hypokalemia SNOMED Code(s): 60216639 ICD Code: E87.6 - HYPOKALEMIA Status: Resolved Current Visit: Yes Problem Details: -K=2.1. Will replace Potassium with riders then repeat labs at 1800 tonight. Monitor vomiting and treat with Zofran as needed. (5) UTI (urinary tract infection) SNOMED Code(s): 81446508 ICD Code: N39.0 - URINARY TRACT INFECTION, SITE NOT SPECIFIED Status: Acute Current Visit: Yes (6) KAISER (acute kidney injury) SNOMED Code(s): 32694300, 53869336 ICD Code: N17.9 - ACUTE KIDNEY FAILURE, UNSPECIFIED Status: Acute Current Visit: Yes - Patient Summary/Data Consults: Consultations 08/09/21 12:28 Consult to Case Management/Design Director [CONS] Routine OT Evaluation and Treatment [CONS] Routine PT Evaluation and Treatment [CONS] Routine - Discharge Plan *PRESCRIPTION DRUG MONITORING PROGRAM REVIEWED*: No *COPY OF PRESCRIPTION DRUG MONITORING REPORT IN PATIENT RACHAEL: No Home Medications: Home Meds Acetaminophen [Tylenol Extra Strength] 1 tab PO Q4H PRN 06/12/14 [History] Loratadine [Claritin] 10 mg PO DAILY PRN 06/12/14 [History] Potassium Chloride [Klor-Con M20] 1 tab PO DAILY 06/12/14 [History] Cholecalciferol (Vitamin D3) [Vitamin D3] 1,000 units PO DAILY 01/27/17 [History] Hydrochlorothiazide 12.5 mg PO DAILY 01/27/17 [History] Albuterol Sulfate [Proair Hfa] 2 puff INH Q4H PRN 12/05/18 [History] Magnesium Oxide [Magnesium] 250 mg PO DAILY 12/05/18 [History] Omeprazole Magnesium [Prilosec Otc] 20 mg PO DAILY 07/21/19 [History] Clopidogrel [Plavix] 75 mg PO DAILY 08/09/21 [History] Rosuvastatin [Crestor] 10 mg PO DAILY 08/09/21 [History] Triamcinolone Acetonide [Triamcinolone Acetonide 0.1% Crm] 1 applic TOP BID PRN 08/09/21 [History] Turmeric/Turmeric Ext/Pepr Ext [Turmeric Complex 500 mg Cap] 2 tab PO DAILY 08/09/21 [History] Oxygen Flow Rate (L/min): 2 Forms: ED Department Discharge, Interfacility Transfer EMTALA Referrals: PCP,None [Primary Care Provider] - - Discharge Summary/Plan Comment DC Time >30 min.: No Total # of Minutes for Discharge Time: 45 minutes: physician to physician consultation, transfer to higher level of care Discharge Summary/Plan Comment: Patient to transfer to [facility] for specialist care including gastroenterology, nephrology, surgical consult. - General Info Admission Dx/Problem (Free Text: Colitis - Review of Systems General: Reports: Weakness, Fatigue, Malaise HEENT: Reports: No Symptoms Pulmonary: Reports: Shortness of Breath Cardiovascular: Reports: No Symptoms Gastrointestinal: Reports: Abdominal Pain, Diarrhea Genitourinary: Reports: No Symptoms Musculoskeletal: Reports: No Symptoms Skin: Reports: No Symptoms Neurological: Reports: No Symptoms Psychiatric: Reports: No Symptoms - Patient Data Vitals - Most Recent: Last Vital Signs Temp 98 F 08/12/21 10:16 Pulse 106 H 08/12/21 10:16 Resp 23 H 08/12/21 10:16 BP 124/67 08/12/21 10:16 Pulse Ox 95 08/12/21 10:16 Weight - Most Recent: 133 lb 4.8 oz I&O - Last 24 hours: Intake & Output 08/11/21 08/12/21 08/12/21 22:59 06:59 14:59 Intake Total 450 2072 Output Total 600 Balance -150 2072 Lab Results - Last 24 hrs: Laboratory Results - last 24 hr 08/11/21 08/11/21 08/12/21 Range/Units 15:18 15:18 06:34 WBC 21.0 H* 20.5 H* (4.0-10.0) x10^3/uL RBC 4.67 4.64 (4.00-5.50) x10^6/uL Hgb 10.5 L 10.4 L (12.0-16.0) g/dL Hct 33.3 33.9 (33.0-47.0) % MCV 71.3 L 73.1 L (78.0-93.0) fL MCH 22.5 L 22.4 L (26.0-32.0) pg MCHC 31.5 L 30.7 L (32.0-36.0) g/dL RDW Coeff of Ruddy 19.6 H 20.0 H (10.0-15.0) % Plt Count 162 165 (130-400) x10^3/uL Add Manual Diff Yes Yes Neutrophils % (Manual) 78 85 H (50-80) % Band Neutrophils % 12 H 11 H (0-6) % Lymphocytes % (Manual) 7 L 1 L (25-50) % Monocytes % (Manual) 3 2 (2-11) % Metamyelocytes % 1 H (0) % Immature Gran # 0.21 H (0.00-0.07) X10^3/Ul Absolute Neutrophils 18.9 H 19.7 H (1.8-7.7) x10^3/uL Lymphocytes # (Manual) 1.5 0.2 L (1.0-4.8) x10^3/uL Monocytes # (Manual) 0.6 0.4 (0.0-0.8) x10^3/uL Platelet Estimate Adequate Adequate Anisocytosis 2+ moderate H 3+ marked H Spherocytes 1+ slight H ESR (0-20) mm/hr Sodium 145 (136-145) mmol/L Potassium 3.5 (3.5-5.1) mmol/L Chloride 111 H (98-107) mmol/L Carbon Dioxide 18 L (21-32) mmol/L Anion Gap 19.5 H (5-15) mmol/L BUN 54 H (7-18) mg/dL Creatinine 2.5 H (0.55-1.02) mg/dL Est Cr Clr Drug Dosing 14.21 mL/min Estimated GFR (MDRD) 18 Glucose 94 (70-99) mg/dL Lactic Acid (0.4-2.0) mmol/L Calcium 7.8 L (8.5-10.1) mg/dL Corrected Calcium (8.5-10.1) mg/dL Total Bilirubin (0.2-1.0) mg/dL AST (15-37) U/L ALT (14-59) U/L Alkaline Phosphatase (46-116) U/L C-Reactive Protein (<=0.9) mg/dL Total Protein (6.4-8.2) g/dL Albumin (3.4-5.0) g/dL Globulin Albumin/Globulin Ratio 08/12/21 08/12/21 08/12/21 Range/Units 06:34 09:10 09:10 WBC (4.0-10.0) x10^3/uL RBC (4.00-5.50) x10^6/uL Hgb (12.0-16.0) g/dL Hct (33.0-47.0) % MCV (78.0-93.0) fL MCH (26.0-32.0) pg MCHC (32.0-36.0) g/dL RDW Coeff of Ruddy (10.0-15.0) % Plt Count (130-400) x10^3/uL Add Manual Diff Neutrophils % (Manual) (50-80) % Band Neutrophils % (0-6) % Lymphocytes % (Manual) (25-50) % Monocytes % (Manual) (2-11) % Metamyelocytes % (0) % Immature Gran # (0.00-0.07) X10^3/Ul Absolute Neutrophils (1.8-7.7) x10^3/uL Lymphocytes # (Manual) (1.0-4.8) x10^3/uL Monocytes # (Manual) (0.0-0.8) x10^3/uL Platelet Estimate Anisocytosis Spherocytes ESR 18 (0-20) mm/hr Sodium 145 (136-145) mmol/L Potassium 3.5 (3.5-5.1) mmol/L Chloride 112 H (98-107) mmol/L Carbon Dioxide 17 L (21-32) mmol/L Anion Gap 19.5 H (5-15) mmol/L BUN 56 H (7-18) mg/dL Creatinine 3.0 H (0.55-1.02) mg/dL Est Cr Clr Drug Dosing 11.85 mL/min Estimated GFR (MDRD) 15 Glucose 158 H (70-99) mg/dL Lactic Acid 0.7 (0.4-2.0) mmol/L Calcium 7.9 L (8.5-10.1) mg/dL Corrected Calcium 9.4 (8.5-10.1) mg/dL Total Bilirubin 0.2 (0.2-1.0) mg/dL AST 49 H (15-37) U/L ALT 22 (14-59) U/L Alkaline Phosphatase 70 (46-116) U/L C-Reactive Protein (<=0.9) mg/dL Total Protein 4.8 L (6.4-8.2) g/dL Albumin 2.1 L (3.4-5.0) g/dL Globulin 2.7 Albumin/Globulin Ratio 0.78 08/12/21 Range/Units 09:10 WBC (4.0-10.0) x10^3/uL RBC (4.00-5.50) x10^6/uL Hgb (12.0-16.0) g/dL Hct (33.0-47.0) % MCV (78.0-93.0) fL MCH (26.0-32.0) pg MCHC (32.0-36.0) g/dL RDW Coeff of Ruddy (10.0-15.0) % Plt Count (130-400) x10^3/uL Add Manual Diff Neutrophils % (Manual) (50-80) % Band Neutrophils % (0-6) % Lymphocytes % (Manual) (25-50) % Monocytes % (Manual) (2-11) % Metamyelocytes % (0) % Immature Gran # (0.00-0.07) X10^3/Ul Absolute Neutrophils (1.8-7.7) x10^3/uL Lymphocytes # (Manual) (1.0-4.8) x10^3/uL Monocytes # (Manual) (0.0-0.8) x10^3/uL Platelet Estimate Anisocytosis Spherocytes ESR (0-20) mm/hr Sodium (136-145) mmol/L Potassium (3.5-5.1) mmol/L Chloride (98-107) mmol/L Carbon Dioxide (21-32) mmol/L Anion Gap (5-15) mmol/L BUN (7-18) mg/dL Creatinine (0.55-1.02) mg/dL Est Cr Clr Drug Dosing mL/min Estimated GFR (MDRD) Glucose (70-99) mg/dL Lactic Acid (0.4-2.0) mmol/L Calcium (8.5-10.1) mg/dL Corrected Calcium (8.5-10.1) mg/dL Total Bilirubin (0.2-1.0) mg/dL AST (15-37) U/L ALT (14-59) U/L Alkaline Phosphatase (46-116) U/L C-Reactive Protein 23.8 H (<=0.9) mg/dL Total Protein (6.4-8.2) g/dL Albumin (3.4-5.0) g/dL Globulin Albumin/Globulin Ratio CARLOS Results - Last 24 hrs: Microbiology 08/10/21 07:20 Urine Culture - Final Urine, Voided MIXED SALVATORE DAY 2 08/10/21 11:00 Clostridioides difficile (PCR) - Final Stool / Feces 08/09/21 00:26 Aerobic Blood Culture - Final Blood - Venous - Lab Draw Escherichia Coli Anaerobic Blood Culture - Final 08/09/21 00:20 Aerobic Blood Culture - Final Blood - Venous Escherichia Coli Anaerobic Blood Culture - Final Escherichia Coli Med Orders - Current: Current Medications Acetaminophen (Acetaminophen 325 Mg Tab) 650 mg PO TID [facility] Last Admin: 08/12/21 11:24 Dose: 650 mg Documented by: Albuterol (Albuterol Hfa 18 Gm Inhaler) 0 gm INH Q4H PRN PRN Reason: WHEEXING OR SOB Calcium Carbonate/Glycine (Calcium Carbonate 750 Mg Tab.Chew) 750 mg PO BID [facility] Last Admin: 08/12/21 07:44 Dose: 750 mg Documented by: Ceftriaxone Sodium (Ceftriaxone 1 Gm Vial) 1 gm IVPUSH DAILY [facility] Last Admin: 08/12/21 08:42 Dose: 1 gm Documented by: Clopidogrel Bisulfate (Clopidogrel 75 Mg Tab) 75 mg PO DAILY [facility] Last Admin: 08/12/21 07:44 Dose: 75 mg Documented by: Dicyclomine HCl (Dicyclomine 10 Mg Cap) 10 mg PO QIDACANDBED PRN PRN Reason: Pain Last Admin: 08/09/21 12:02 Dose: 10 mg Documented by: Heparin Sodium (Porcine) (Heparin Sodium 5,000 Units/Ml Vial) 5,000 units SUBCUT Q12H [facility] Last Admin: 08/12/21 07:44 Dose: 5,000 units Documented by: Hydromorphone HCl (Hydromorphone 1 Mg/Ml Syringe) 1 mg IVPUSH Q4H PRN PRN Reason: Pain Last Admin: 08/11/21 20:25 Dose: 1 mg Documented by: Sodium Chloride (Normal Saline) 1,000 mls @ 75 mls/hr IV ASDIRECTED [facility] Last Admin: 08/12/21 05:42 Dose: 125 mls/hr Documented by: Loperamide HCl (Loperamide 2 Mg Cap) 2 mg PO Q4H PRN PRN Reason: Diarrhea Last Admin: 08/12/21 07:43 Dose: 2 mg Documented by: Ondansetron HCl (Ondansetron 4 Mg/2 Ml Sdv) 4 mg IVPUSH Q6H PRN PRN Reason: Nausea Last Admin: 08/12/21 07:43 Dose: 4 mg Documented by: Potassium Chloride (Potassium Chloride 20 Meq Tab.Er) 20 meq PO DAILY [facility] Last Admin: 08/12/21 07:44 Dose: 20 meq Documented by: Sodium Chloride (Sodium Chloride 0.9% 10 Ml Syringe) 10 ml FLUSH ASDIRECTED PRN PRN Reason: FLUSH Last Admin: 08/12/21 08:42 Dose: 10 ml Documented by: Vancomycin HCl (Pharmacy To Dose - Vancomycin) 1 dose .XX ASDIRECTED [facility] Discontinued Medications Calcium Carbonate/Glycine (Calcium Carbonate 750 Mg Tab.Chew) 750 mg PO ONETIME ONE Stop: 08/10/21 10:19 Last Admin: 08/10/21 11:46 Dose: 750 mg Documented by: Dicyclomine HCl (Dicyclomine 20 Mg/2 Ml Sdv) 20 mg IM ONETIME ONE Stop: 08/09/21 01:59 Last Admin: 08/09/21 03:02 Dose: 20 mg Documented by: Fentanyl (Fentanyl 100 Mcg/2 Ml Sdv) 50 mcg IVPUSH ONETIME ONE Stop: 08/09/21 01:49 Last Admin: 08/09/21 02:00 Dose: 50 mcg Documented by: Fentanyl (Fentanyl 50 Mcg/Ml Sdv) 12.5 mcg IVPUSH Q2H PRN PRN Reason: Abdominal Pain Last Admin: 08/10/21 09:04 Dose: 12.5 mcg Documented by: Heparin Sodium (Porcine) (Heparin Sodium 5,000 Units/Ml Vial) 5,000 units SUBCUT Q8H [facility] Last Admin: 08/11/21 07:25 Dose: 5,000 units Documented by: Hydromorphone HCl (Hydromorphone 1 Mg/Ml Syringe) 1 mg IVPUSH ONETIME ONE Stop: 08/09/21 00:37 Last Admin: 08/09/21 00:41 Dose: 1 mg Documented by: Potassium Chloride/Sodium Chloride (Normal Saline With 40 Meq Kcl) 1,000 mls @ 125 mls/hr IV ASDIRECTED [facility] Ciprofloxacin/Dextrose 400 mg/ (Premix) 200 mls @ 200 mls/hr IV STAT ONE Stop: 08/09/21 02:18 Last Admin: 08/09/21 03:01 Dose: 200 mls/hr Documented by: Metronidazole 500 mg/ Premix 100 mls @ 100 mls/hr IV ONETIME ONE Stop: 08/09/21 02:19 Last Admin: 08/09/21 04:16 Dose: 100 mls/hr Documented by: Potassium Chloride/Sodium Chloride (Normal Saline With 40 Meq Kcl) 1,000 mls @ 200 mls/hr IV ASDIRECTED [facility] Last Infusion: 08/09/21 05:58 Dose: 100 mls/hr Documented by: Potassium Chloride 10 meq/ (Premix) 50 mls @ 50 mls/hr IV Q1H [facility] Stop: 08/09/21 16:59 Last Admin: 08/09/21 17:20 Dose: 50 mls/hr Documented by: Ciprofloxacin/Dextrose 400 mg/ (Premix) 200 mls @ 200 mls/hr IV Q12H [facility] Last Admin: 08/10/21 09:08 Dose: Not Given Documented by: Metronidazole 500 mg/ Premix 100 mls @ 100 mls/hr IV Q8H [facility] Last Admin: 08/10/21 03:44 Dose: 100 mls/hr Documented by: Piperacillin Sod/Tazobactam (Sod 3.375 gm/ Sodium Chloride) 100 mls @ 25 mls/hr IV Q8H [facility] Last Admin: 08/12/21 04:18 Dose: 25 mls/hr Documented by: Vancomycin HCl 1.25 gm/ Premix 250 mls @ 200 mls/hr IV ONETIME ONE Stop: 08/10/21 17:14 Last Admin: 08/10/21 16:11 Dose: 200 mls/hr Documented by: Vancomycin HCl 1 gm/ Sodium (Chloride) 250 mls @ 250 mls/hr IV Q48H [facility] Potassium Chloride 20 meq/ (Premix) 50 mls @ 25 mls/hr IV ONETIME ONE Stop: 08/11/21 11:37 Last Admin: 08/11/21 09:48 Dose: 25 mls/hr Documented by: Iopamidol (Iopamidol 612 Mg/Ml 100 Ml Bottle) 100 ml IVPUSH ONETIME ONE Stop: 08/08/21 23:44 Last Admin: 08/09/21 12:58 Dose: Not Given Documented by: Iopamidol (Iopamidol 755 Mg/Ml 100 Ml Bottle) 100 ml IVPUSH ONETIME ONE Stop: 08/09/21 03:25 Last Admin: 08/09/21 12:55 Dose: Not Given Documented by: Methylprednisolone Sodium Succinate (Methylprednisolone Sodium Succinate 125 Mg/2 Ml Sdv) 125 mg IVPUSH ONETIME ONE Stop: 08/09/21 03:42 Last Admin: 08/09/21 04:17 Dose: 125 mg Documented by: Metoclopramide HCl (Metoclopramide 10 Mg/2 Ml Sdv) 10 mg IVPUSH ONETIME ONE Stop: 08/09/21 00:37 Last Admin: 08/09/21 00:36 Dose: 10 mg Documented by: Morphine Sulfate (Morphine 2 Mg/Ml Syringe) 4 mg IVPUSH ONETIME ONE Stop: 08/08/21 23:49 Last Admin: 08/08/21 23:35 Dose: 4 mg Documented by: Morphine Sulfate (Morphine 2 Mg/Ml Syringe) 1 mg IVPUSH Q2H PRN PRN Reason: Pain Ondansetron HCl (Ondansetron 4 Mg/2 Ml Sdv) 4 mg IV ONETIME ONE Stop: 08/08/21 23:49 Last Admin: 08/08/21 23:37 Dose: 4 mg Documented by: Potassium Chloride (Potassium Chloride 10 Meq Tab.Er) 40 meq PO ONETIME ONE Stop: 08/10/21 10:18 Last Admin: 08/10/21 11:46 Dose: 40 meq Documented by: - Exam Quality Assessment: Reports: Supplemental Oxygen (2L) General: Reports: Alert, Oriented, Cooperative, Moderate Distress HEENT: Reports: Mucous Membr. Moist/[place] Neck: Reports: Supple Lungs: Reports: Crackles (bilateral bases) Cardiovascular: Reports: Regular Rhythm, Tachycardia GI/Abdominal Exam: Normal Bowel Sounds, Soft, Tender (generalized to mild-mod pa lpation) Extremities: Non-Tender Skin: Reports: Warm, Dry Psy/Mental Status: Reports: Alert, Normal Affect, Normal Mood
[2021-08-12 14:02] VITALS: BP 144/76; PULSE 101
== END 2021-08-12 16:30 | disposition short-term general hospital (02) | DRG 872 ==
LOC: VM.ED 23:35 → VM.MS 08-09 04:17 → EEVIPCON 08-09 12:27 → OBSVTOIN 08-09 12:27
PROVIDERS: ADMIT Nurse Practitioner Family; ATTEND Family Medicine
DX: A41.9 Sepsis, unspecified organism (principal); R10.32 Left lower quadrant pain; R13.10 Dysphagia, unspecified; E78.00 Pure hypercholesterolemia, unspecified; N39.0 Urinary tract infection, site not specified; N17.9 Acute kidney failure, unspecified; K52.9 Noninfective gastroenteritis and colitis, unspecified; K57.90 Diverticulosis of intestine, part unspecified, without perforation or abscess without bleeding; N28.9 Disorder of kidney and ureter, unspecified; Z85.3 Personal history of malignant neoplasm of breast; Z85.72 Personal history of non-Hodgkin lymphomas; Z72.0 Tobacco use; Z91.041 Radiographic dye allergy status; Z79.02 Long term (current) use of antithrombotics/antiplatelets; Z79.82 Long term (current) use of aspirin; Z79.899 Other long term (current) drug therapy; E87.6 Hypokalemia; Z20.822 Contact with and (suspected) exposure to COVID-19; E87.70 Fluid overload, unspecified; E78.5 Hyperlipidemia, unspecified; E83.51 Hypocalcemia; I73.9 Peripheral vascular disease, unspecified; Z66 Do not resuscitate; K21.9 Gastro-esophageal reflux disease without esophagitis; I10 Essential (primary) hypertension; J43.9 Emphysema, unspecified; Z87.19 Personal history of other diseases of the digestive system; Z90.49 Acquired absence of other specified parts of digestive tract; Z98.42 Cataract extraction status, left eye; Z98.41 Cataract extraction status, right eye
CPT/HCPCS: 36415; 71045; 74176; 74177; 80048; 80053; 81001; 83605; 83735; 83880; 84484; 85025; 85610; 85652; 86140; 87040; 87077; 87086; 87186; 87493; 93005; 96365; 96366; 96375; 96376; 97162-GP; 99220; 99233; 99285-25; A9270-GY; J0500; J0696; J0744; J1170; J1644; J2270; J2405; J2543; J2765; J2930; J3010; J3370; J3480; J3490; J7030; Q9967; U0002